=== PATIENT | female | born 1935 | race Caucasian/White ===

== ENCOUNTER 2020-02-11 13:49 | Outpatient (REF) | payer MEDICARE, SELFPAY ==
[2020-02-11 15:15] LABS: MANUAL DIFF FLAG NO
[2020-02-11 15:44] LABS: Basophils Absolute Auto 0.1 X10*3/uL (0.0-0.2); Basophils Percent Auto 1.5 % (0-2); Eosinophils Absolute Auto 0.6 X10*3/uL (0.0-0.4); Hematocrit 39.1 % (37-47); Imm Gran Abs Auto 0.02 X10*3/uL (0.00-0.03); Imm Gran Pct Auto 0.2 % (0.0-0.4); Lymphocytes Absolute Auto 2.1 X10*3/uL (1.2-4.9); Lymphocytes Percent Auto 23.7 % (20-40); Mean Corpuscular HGB Conc 33.2 g/dl (31.0-35.0); Mean Corpuscular Hemoglobin 30.5 pg (27.0-33.0); Mean Corpuscular Volume 91.8 fL (80-98); Mean Platelet Volume 10.8 fL (9.4-12.3); Monocytes Absolute Auto 0.6 X10*3/uL (0.1-1.2); Monocytes Percent Auto 6.8 % (2-11); Neutrophils Absolute Auto 5.4 X10*3/uL (2.0-8.3); Neutrophils Percent Auto 60.8 % (45-73); Platelet Count 291 X10*3/uL (160-400); Red Blood Count 4.26 X10*6/uL (4.20-5.50); Red Cell Distribution Width 12.1 % (11.0-16.0); White Blood Count 8.8 X10*3/uL (4.8-10.8)
[2020-02-11 16:06] LABS: Alanine Aminotransferase 23 U/L (0-31); Albumin Level 4.4 g/dL (3.5-5.0); Alkaline Phosphatase 79 U/L (39-117); Anion Gap 12 (12-20); Aspartate Amino Transferase 23 U/L (5-31); Bilirubin Total 0.3 mg/dL (0.0-1.0); Blood Urea Nitrogen 23 mg/dL (9-16); C Reactive Protein 0.12 mg/dL (< or = 0.50); Calcium 9.4 mg/dL (8.4-10.2); Carbon Dioxide 27 mmol/L (22-29); Chloride 101 mmol/L (96-108); Estimated Glomerular Filt Rate 42; Glucose Random 249 mg/dL (60-115); Potassium 4.7 mmol/l (3.3-5.1); Rheumatoid Factor < 15.0 IU/mL (<15.0); Sodium 135 mmol/L (135-145); Total Protein 7.6 g/dL (6.5-8.0)
[2020-02-11 16:38] LABS: Erythrocyte Sedimentation Rate 51 MM/HR (0-20)
[2020-02-12 14:07] LABS: PTT (LAC) Screen 25 sec (< OR = 40)
[2020-02-13 13:57] LABS: Antibody to SS-A Antigen <1.0 NEG AI (<1.0 NEG); Antibody to SS-B Antigen <1.0 NEG AI (<1.0 NEG)
[2020-02-16 10:57] LABS: Vitamin D 25-OH, D2 <4 ng/mL; Vitamin D 25-OH, D3 41 ng/mL; Vitamin D 25-OH, Total 41 ng/mL (30-100)
[2020-02-16 12:51] LABS: Cyclic Citrullinated Peptide <16 UNITS
== END 2020-02-11 13:50 | disposition home or self-care (01) ==
LOC: HO.LAB 13:49
PROVIDERS: PCP Family Medicine; Visit Provider Student in an Organized Health Care Education/Training Program
DX: M25.50 Pain in unspecified joint (principal)
CPT/HCPCS: 36415; 80053; 82306; 84443; 85025; 85597; 85613; 85652; 85730; 86140; 86200; 86235; 86431; 99204

== ENCOUNTER 2020-03-01 14:12 | Outpatient (REF) | payer MEDICARE, SELFPAY ==
--- NOTE | 2020-03-01 14:19 | XR_ITS ---
EXAMINATION: XR BILATERAL KNEE AND CERVICAL SPINE CLINICAL INFORMATION: Pain. COMPARISON: None. TECHNIQUE: 3 views of each knee. 3 views cervical spine. FINDINGS: Left Knee: There is zogi-ai-eslcalic loss of patellofemoral and medial compartment joint space with periarticular spurring. No joint effusion seen. There is small enthesophytes along the anterior superior patella. No loose bodies. There is mild calcification of the lateral meniscus. Right Knee: There is a loss of medial and patellar femoral compartment joint space with periarticular spurring. No abnormal joint effusion seen. There is mild calcification of the lateral menisci. No fracture seen. Cervical Spine: There is maintained cervical lordosis. There is loss of C6-C7 disc height with moderate ventral spondylosis. There is bilateral facet joint arthropathy at C4-C5, C5-C6 disc levels. No visible acute fracture or dislocation seen. The prevertebral soft tissues are normal. XR/XR cervical spine 2V IMPRESSION: Lateral meniscal calcifications with loss of disc joint space in medial and lateral compartments of both knees consistent degenerative arthritis. No visible acute fracture or dislocation seen. Mild degenerative disc changes C6-C7 disc level with ventral spondylosis.
--- NOTE | 2020-03-01 14:19 | XR_ITS ---
EXAMINATION: XR BILATERAL KNEE AND CERVICAL SPINE CLINICAL INFORMATION: Pain. COMPARISON: None. TECHNIQUE: 3 views of each knee. 3 views cervical spine. FINDINGS: Left Knee: There is roxu-rk-uhfevajp loss of patellofemoral and medial compartment joint space with periarticular spurring. No joint effusion seen. There is small enthesophytes along the anterior superior patella. No loose bodies. There is mild calcification of the lateral meniscus. Right Knee: There is a loss of medial and patellar femoral compartment joint space with periarticular spurring. No abnormal joint effusion seen. There is mild calcification of the lateral menisci. No fracture seen. Cervical Spine: There is maintained cervical lordosis. There is loss of C6-C7 disc height with moderate ventral spondylosis. There is bilateral facet joint arthropathy at C4-C5, C5-C6 disc levels. No visible acute fracture or dislocation seen. The prevertebral soft tissues are normal. XR/XR knee RT 3V IMPRESSION: Lateral meniscal calcifications with loss of disc joint space in medial and lateral compartments of both knees consistent degenerative arthritis. No visible acute fracture or dislocation seen. Mild degenerative disc changes C6-C7 disc level with ventral spondylosis.
--- NOTE | 2020-03-01 14:19 | XR_ITS ---
EXAMINATION: XR BILATERAL KNEE AND CERVICAL SPINE CLINICAL INFORMATION: Pain. COMPARISON: None. TECHNIQUE: 3 views of each knee. 3 views cervical spine. FINDINGS: Left Knee: There is xbnj-yp-hyxpcxqy loss of patellofemoral and medial compartment joint space with periarticular spurring. No joint effusion seen. There is small enthesophytes along the anterior superior patella. No loose bodies. There is mild calcification of the lateral meniscus. Right Knee: There is a loss of medial and patellar femoral compartment joint space with periarticular spurring. No abnormal joint effusion seen. There is mild calcification of the lateral menisci. No fracture seen. Cervical Spine: There is maintained cervical lordosis. There is loss of C6-C7 disc height with moderate ventral spondylosis. There is bilateral facet joint arthropathy at C4-C5, C5-C6 disc levels. No visible acute fracture or dislocation seen. The prevertebral soft tissues are normal. XR/XR knee LT 3V IMPRESSION: Lateral meniscal calcifications with loss of disc joint space in medial and lateral compartments of both knees consistent degenerative arthritis. No visible acute fracture or dislocation seen. Mild degenerative disc changes C6-C7 disc level with ventral spondylosis.
== END 2020-03-01 14:13 | disposition home or self-care (01) ==
LOC: HO.XRAY 14:12
PROVIDERS: PCP Family Medicine; Visit Provider Student in an Organized Health Care Education/Training Program
DX: M25.50 Pain in unspecified joint (principal)
CPT/HCPCS: 72040; 73562

== ENCOUNTER 2020-03-02 11:36 | Outpatient (REF) | payer MEDICARE, SELFPAY ==
[2020-03-03 15:11] LABS: Prot Elec - Albumin 3.9 g/dL (3.8-4.8); Prot Elec - Alpha1 0.3 g/dL (0.2-0.3); Prot Elec - Alpha2 0.9 g/dL (0.5-0.9); Prot Elec - Beta 1 0.5 g/dL (0.4-0.6); Prot Elec - Beta 2 0.5 g/dL (0.2-0.5); Prot Elec - Gamma 1.2 g/dL (0.8-1.7); Prot Elec - Total Protein 7.3 g/dL (6.1-8.1)
[2020-03-07 13:02] LABS: IgA 335 mg/dL (70-320); IgG 1276 mg/dL (600-1540); IgM 73 mg/dL (50-300)
== END 2020-03-02 11:37 | disposition home or self-care (01) ==
LOC: HO.LAB 11:36
PROVIDERS: PCP Family Medicine; Referring Provider Family Medicine; Visit Provider Student in an Organized Health Care Education/Training Program
DX: M17.12 Unilateral primary osteoarthritis, left knee (principal); R70.0 Elevated erythrocyte sedimentation rate; M25.50 Pain in unspecified joint; Z79.82 Long term (current) use of aspirin; Z79.4 Long term (current) use of insulin; Z79.899 Other long term (current) drug therapy; Z79.891 Long term (current) use of opiate analgesic
CPT/HCPCS: 20610; 36415; 82784; 84155; 84165; 86334; 99212

== ENCOUNTER → 2020-04-12 13:42 | Outpatient (BNVA) | payer MEDICARE, SELFPAY | PROVIDERS: PCP Family Medicine; Referring Provider Family Medicine; Visit Provider Nurse Practitioner | DX: Z13.89 Encounter for screening for other disorder (principal) | CPT/HCPCS: Q3014 ==

== ENCOUNTER → 2020-06-07 13:46 | Outpatient (BNVA) | payer MEDICARE, SELFPAY | PROVIDERS: PCP Family Medicine; Visit Provider Nurse Practitioner | CPT/HCPCS: Q3014 ==

== ENCOUNTER 2020-06-24 12:50 | Outpatient (REF) | payer MEDICARE, SELFPAY ==
--- NOTE | ~2020-06-24 | MM_ITS ---
EXAMINATION: MM SCREENING DIGITAL BREAST TOMOSYNTHESIS, BILATERAL CLINICAL INFORMATION: Screening. Asymptomatic. The lifetime risk of breast cancer based on the Tyrer-Cuzick Model is 1%. COMPARISON: Mammography: 06/18/2019, 05/06/2018, 04/25/2017 TECHNIQUE: Digital breast tomosynthesis is performed in both the craniocaudal and mediolateral oblique views along with computer-aided detection (CAD). Synthesized 2D images are generated from the tomosynthesis. Additional right MLO view is provided. FINDINGS: There are scattered areas of fibroglandular density (ACR BI-RADS breast composition Category b). There are no significant masses, abnormal calcifications, or other abnormalities. The axilla and skin contours are unremarkable. MM/MM tomosynthesis screening BI IMPRESSION: No mammographic evidence of malignancy. ASSESSMENT: BI-RADS 1: Negative RECOMMENDATION: Routine annual mammography screening. This patient's information was entered into a reminder system with a target due date for their next mammogram.
== END 2020-06-24 12:51 | disposition home or self-care (01) ==
LOC: HO.MAMMO 12:50
PROVIDERS: Visit Provider Family Medicine
DX: Z12.31 Encounter for screening mammogram for malignant neoplasm of breast (principal)
CPT/HCPCS: 77063; 77067

== ENCOUNTER → 2020-07-12 15:32 | Outpatient (BNVA) | payer MEDICARE, SELFPAY | PROVIDERS: Visit Provider Student in an Organized Health Care Education/Training Program | DX: M17.11 Unilateral primary osteoarthritis, right knee (principal) | CPT/HCPCS: 20610; 99212 ==

== ENCOUNTER → 2020-07-19 12:57 | Outpatient (BNVA) | payer MEDICARE, SELFPAY | PROVIDERS: Visit Provider Nurse Practitioner | DX: K31.84 Gastroparesis (principal) | CPT/HCPCS: Q3014 ==

== ENCOUNTER 2020-08-29 08:25 | Emergency (ER) | payer MEDICARE, SELFPAY ==
--- NOTE | 2020-08-29 | ECG_ITS ---
Test Reason : FALL Blood Pressure : / mmHG Vent. Rate : 086 BPM Atrial Rate : 086 BPM P-R Int : 130 ms QRS Dur : 124 ms QT Int : 446 ms P-R-T Axes : 062 -39 077 degrees QTc Int : 533 ms Normal sinus rhythm Left axis deviation Left bundle branch block Abnormal ECG When compared with ECG of 30-DEC-2019 16:15, No significant change was found Referred By: Generic ED Physician Electronically Signed By:WILBERT CAMPBELL
--- NOTE | ~2020-08-29 | CT_ITS ---
EXAMINATION: CT HIP WITHOUT CONTRAST, RIGHT CLINICAL INFORMATION: Fall with right hip pain. COMPARISON: 08/29/2020 TECHNIQUE: Multidetector volumetric imaging was obtained through the right hip without contrast. Multiplanar reformatted images in coronal and sagittal orientations were submitted. This CT examination was performed using dose optimization techniques as appropriate, variously including the following: *Automated exposure control *Adjustment of mA and/or kV according to patient size (this includes techniques or standardized protocols for targeted exams where dose is matched to indication/reason for exam; i.e. extremities or head) *Use of iterative reconstruction technique DLP: 187 mGy-cm. FINDINGS: Small marginal osteophytes are present at the right acetabulum and femoral head. There is chondrocalcinosis at the acetabular labrum. Mild nonuniform joint space narrowing is present in the right hip. Cvqu-vk-oxubypoq osteoarthritis is also noted in the imaged portion of the articular joint with subchondral sclerosis, subchondral cystic change, joint space narrowing, and articular cortical irregularity as well as marginal osteophytes. Moderate osteoarthritis of the pubic symphysis is associated with chondrocalcinosis, marginal osteophytes, and subchondral sclerosis. No fractures are identified. Bone mineralization is normal. No stress reactions or aggressive osseous lesions are identified. Enthesopathic spurring is present at the gluteus minimus insertions on the greater trochanter. There is xutf-xd-ywqhhjux atrophy and fatty replacement of the gluteus minimus, likely with a chronic partial tear. Tendinosis is suspected of the gluteus medius insertion. Trochanteric bursitis may be present in this region. No large fluid collections. Calcific atherosclerosis is present in the iliac and femoral arteries. CT/CT hip RT wo con IMPRESSION: 1. No acute fracture or malalignment. 2. 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 There is associated chondrocalcinosis. 3. Mild to moderate atrophy and fatty replacement of the right gluteus minimus muscle with a probable chronic partial tear of the tendon. Probable mild trochanteric bursitis and underlying gluteus medius tendinosis.
--- NOTE | ~2020-08-29 | CT_ITS ---
EXAMINATION: CT HEAD, CT CERVICAL SPINE WITHOUT CONTRAST. RIGHT HIP AND CHEST X-RAY. CLINICAL INFORMATION: Fall with chest pain. COMPARISON: None TECHNIQUE: 5 mm thin axial and reformatted 2 mm thin sagittal and coronal images of brain were obtained. Subsequently axial 3 mm thin and reformatted 2 mm thin sagittal and coronal images of cervical spine were obtained. DLP [id number]. Chest one view. AP pelvis and right hip 3 views. FINDINGS: AP pelvis and right hip: There is normal symmetry of both hip joints and SI joints. No visible fracture or dislocation seen involving the right hip joint on the pelvic bones. There is amorphous calcification left pelvis likely calcified uterine fibroid. Chest x-ray: The lungs are well-expanded and clear. Heart size and pulmonary vascularity is normal. There is a 2 mm punctate nodule right lower lobe. No gross bony abnormality seen. Brain: There is no acute intra-axial, extra-axial bleed, masses or midline shift. There is no acute infarct in evolution. The baker to white matter differentiation is maintained normal. The lateral ventricles are enlarged but symmetrical. There is diffuse periventricular hypodensity in both cerebral hemispheres from chronic small vessel changes. Bone windows reveal no calvarial abnormality. There is no scalp soft tissue abnormality. There is mild mucoperiosteal thickening right maxillary and left sphenoid sinus. Rest of the paranasal sinuses and mastoid air cells are well-aerated. Cervical spine: There is normal cervical lordosis. The vertebral heights, alignment and disc heights are normal. The craniovertebral junction and C1-C2 alignment is normal. There is mild bilateral C3-C4 and C4-C5 facet joint arthropathy The prevertebral and paravertebral soft tissues are normal. There is no visible acute fracture, dislocation or subluxation. Visualized bilateral parotid glands are symmetrical and normal. The airway is widely patent. Minimal atelectatic changes seen in the right lung apex. CT/CT cervical spine wo con IMPRESSION: No acute cardiopulmonary process. No acute fracture or dislocation right hip. The AP pelvis is unremarkable. No acute intracranial process seen. Age-related cerebral volume loss. Chronic small vessel or microangiopathy in both cerebral hemispheres. No acute fracture or dislocation cervical spine..
[2020-08-29 08:36] VITALS: BP 158/64; BP 160/69; PULSE 100; PULSE 92; RESP 16; TEMP 36.9; O2SAT 95; O2SAT 97; BMI 24.3
--- NOTE | 2020-08-29 09:20 | ED.GENADULT ---
HPI - General Adult General Chief complaint: Fall Stated complaint: fall/ ON floor all night Time Seen by Provider: 08/29/20 09:18 Source: patient, family (Daughter), EMS and official court interpreter Mode of arrival: EMS Limitations: no limitations History of Present Illness HPI narrative: 84-year-old female found on the floor next to her bed by her daughter thought that she fell of the bed, patient now is telling her daughter that she could not get on the bed so she slept on the floor, patient lives with chronic pain of the whole body due to arthritis today is complaining of chest pain and right hip pain that also has been for a while. Patient has no specific complaint. Related Data Home Medications Medication Instructions Recorded Confirmed acetaminophen 650 mg 650 mg PO Q8H 02/11/20 tablet,extended release albuterol sulfate 2.5 mg INHALATION QID 02/11/20 albuterol sulfate 90 mcg/actuation 2 puff INHALATION Q4-6H PRN 02/11/20 aerosol inhaler aspirin 81 mg tablet,delayed 81 mg PO DAILY 02/11/20 release atorvastatin 40 mg tablet 40 mg PO DAILY 02/11/20 calcium carbonate 500 mg (1,250 1 tab PO BID 02/11/20 mg)-vitamin D3 200 unit tablet fluticasone propionate 220 2 puff INHALATION BID 02/11/20 mcg/actuation HFA aerosol inhaler fluticasone propionate 50 1 spray INTRANASAL DAILY 02/11/20 mcg/actuation nasal spray,suspension irbesartan 300 mg tablet 300 mg PO DAILY 02/11/20 loratadine 10 mg tablet 10 mg PO DAILY 02/11/20 nitroglycerin 0.4 mg sublingual 0.4 mg SUBLINGUAL Q5M PRN 02/11/20 tablet omega-3 fatty acids 1,000 mg 1,000 mg PO BID 02/11/20 capsule tramadol 50 mg tablet 50 mg PO BID PRN 02/11/20 zolpidem 10 mg tablet 10 mg PO BEDTIME tab 02/11/20 gabapentin 600 mg tablet 300 mg PO TID tab 03/02/20 03/02/20 calcium polycarbophil 625 mg tablet 1,250 mg PO BID 03/21/20 03/21/20 simethicone 125 mg capsule 125 mg PO TID-QID PRN 03/21/20 03/21/20 insulin aspar prt-insulin aspart 10 unit SUBCUT BID 06/07/20 06/07/20 100 unit/mL (70-30) subcutaneous soln Previous Rx's Medication Instructions Recorded sennosides 8.6 mg capsule 17.2 mg PO BEDTIME 30 Days #60 cap 03/22/20 utjsse-koyxcrvi-cmturnf 1 cap PO QID #140 cap 04/14/20 3,000-9,500-15,000 unit capsule,delayed releas lubiprostone 24 mcg capsule 24 mcg PO BID #180 cap 05/23/20 metoclopramide HCl 10 mg tablet 10 mg PO .TIDAC 30 Days #90 tab 06/07/20 Saccharomyces boulardii 250 mg 250 mg PO BID 30 Days #60 cap 07/25/20 capsule docusate sodium 100 mg capsule 100 mg PO DAILY #30 cap 08/24/20 Allergies Allergy/AdvReac Type Severity Reaction Status Date / Time almond Allergy Intermediate HIVES Verified 07/19/20 12:58 moxifloxacin [From Avelox] Allergy Mild Rash Verified 07/19/20 12:58 peanut [Peanut] Allergy Mild Rash Verified 07/19/20 12:58 Review of Systems Review of Systems: All other systems are reviewed and are negative Constitutional: Reports as per HPI and Reports no additional constitutional complaints Eyes: Reports as per HPI and Reports no additional eye complaints Reports system reviewed and no additional complaints, except as documented Cardiovascular: Reports as per HPI and Reports no additional cardiovascular complaints Respiratory: Reports as per HPI and Reports no additional respiratory complaints Gastrointestinal: Reports as per HPI and Reports no additional gastrointestinal complaints Genitourinary: Reports no additional female genitourinary complaints Musculoskeletal: Reports no additional musculoskeletal complaints Skin/Breast: Reports system reviewed and no additional complaints, except as docu Psychiatric: Reports no additional psychiatric complaints Endocrine: Reports no additional endocrine complaints Hematologic/Lymphatic: Reports no additional hematologic/lymphatic complaints Allergic/Immunologic: Reports no additional allergic/immunologic complaints Reports system reviewed and no additional complaints, except as documented and Reports Abnormal speech present COUNT INCLUDES THE [facility] Past Medical History Medical History Asthma Congestive heart failure Coronary artery disease Diabetes mellitus Diverticulitis Hypertension Irritable bowel syndrome Left bundle branch block Osteoporosis Surgical History History of cholecystectomy History of esophagogastroduodenoscopy (EGD) Hx of colonoscopy S/P appendectomy S/P coronary artery stent placement S/P hernia repair Family History Family History Father CVD (cardiovascular disease) Mother Diabetes CVD (cardiovascular disease) Social History Social History Household Members: Children Housing: House Alcohol intake: current Alcohol intake frequency: does not drink Smoking Status: Unknown if ever smoked Use of substances other than those prescribed or required for medical reasons: No Advance Directives: No Advance Directives Information Provided: No Physical Exam Vital Signs: Vital Signs: Last Vital Signs Temp 98.5 F 08/29/20 08:36 Pulse 88 08/29/20 14:19 Resp 16 08/29/20 14:19 BP 155/77 H 08/29/20 14:19 Pulse Ox 97 08/29/20 14:19 Body Mass Index 24.3 Vital signs have been reviewed as appeared to be correct. Blood pressure elevated. Heart rate normal. Respiration rate normal. Temperature normal. Oxygen saturation normal. Appearance: Alert. Oriented X3 (not to time). No acute distress. Head: Normal external exam. Normocephalic. Atraumatic. No Rodas signs noted. No raccoon eyes noted Eyes: PERRLA. EOMI. Conjunctiva and sclera normal. Eyelids normal. ENT: TM's Normal. Pharynx normal. Uvula midline. Moist mucous membranes. No trismus noted. No drooling noted. No muffled voice noted. Neck: Normal inspection. Neck supple. FROM. No adenopathy. Thyroid Normal. No meningeal signs. No neck mass noted. CVS: Normal heart rate and rhythm. Heart sound normal. No murmurs noted. Pulses normal throughout. Respiratory: No respiratory distress. Painless inspiration. Breath sounds normal. No wheezes/rales/rhonchi noted. Chest nontender. No accessory muscle usage noted or decreased air movement noted. Abdomen: Soft and nontender. Bowel sounds normal in all 4 quadrants. No distention noted. No organomegaly noted. No visible injury noted. Back: No CVA tenderness. Full range of motion noted. Skin: Skin warm and dry. Normal skin color. Normal skin turgor. No rashes/lesions/lacerations noted. Extremities: No lower extremity edema. Extremities exhibit normal range of motion. Right hip tenderness but no deformity or shortening rotation of the lower extremities.. Neuro: Oriented X 3. No motor deficit. No sensory deficit. Reflexes normal. Course Course Course Narrative: Assessment and plan. This is an 84-year-old female came in after patient slipped on the floor last night because she could not get on the bed on her own, patient had EKG was unchanged from baseline, troponin was elevated but no delta change, unremarkable radiographic studies for head/C-spine/right hip. Normal renal function test with elevated CPK indicating rhabdomyolysis. Patient adamantly refusing to stay in the hospital but agreed to drink plenty of fluids at home, will give a L of normal saline before discharge then Will discharge the patient with daughter. Patient suffer chronic pain due to diffuse arthritis. 5-9 wbc's in the urine but patient declined any symptoms for UTI. Medical Decision Making Lab Data Lab results reviewed: Yes I reviewed the patient's lab results. Result diagrams: 08/29/20 10:22 08/29/20 10:22 Labs: Lab Results 08/29/20 08/29/20 08/29/20 Range/Units 10:22 10:22 10:22 WBC 12.6 H (4.8-10.8) X10*3/uL RBC 4.90 (4.20-5.50) X10*6/uL Hgb 14.8 (12.0-16.0) g/dl Hct 43.6 (37-47) % MCV 89.0 (80-98) fL MCH 30.2 (27.0-33.0) pg MCHC 33.9 (31.0-35.0) g/dl RDW 12.5 (11.0-16.0) % Plt Count 227 (160-400) X10*3/uL MPV 10.3 (9.4-12.3) fL Immature Gran % (Auto) 0.4 (0.0-0.4) % Neut % (Auto) 82.5 H (45-73) % Lymph % (Auto) 10.1 L (20-40) % Corson % (Auto) 5.8 (2-11) % Eos % (Auto) 0.5 (0-4) % Baso % (Auto) 0.7 (0-2) % Lymph # (Auto) 1.3 (1.2-4.9) X10*3/uL Corson # (Auto) 0.7 (0.1-1.2) X10*3/uL Eos # (Auto) 0.1 (0.0-0.4) X10*3/uL Baso # (Auto) 0.1 (0.0-0.2) X10*3/uL Abs Immat Gran (auto) 0.05 H (0.00-0.03) X10*3/uL Absolute Neuts (auto) 10.4 H (2.0-8.3) X10*3/uL Absolute Nucleated RBC 0.000 (0.0-0.012) X10*3/uL Nucleated RBC % (auto) 0.0 (0.0-0.2) /100WBC Sodium 137 (135-145) mmol/L Potassium 3.9 (3.3-5.1) mmol/L Chloride 100 (96-108) mmol/L Carbon Dioxide 27 (22-29) mmol/L Anion Gap 14 (12-20) BUN 16 (9-16) mg/dL Creatinine 0.98 (0.5-1.4) mg/dL Estim Creat Clear Calc 32.2 Estimated GFR 54 Random Glucose 193 H (60-115) mg/dL Calcium 10.1 D (8.4-10.2) mg/dL Total Creatine Kinase 1515 H (26-140) U/L Troponin I High Sens 166.6 H (<3.5-17.0) ng/L Lipase 38 (8-78) U/L Urine Color Urine Appearance Urine pH (5.0-8.0) Ur Specific Campbell (1.005-1.025) Urine Protein (NEG-TRACE) MG/DL Urine Glucose (UA) (NEG) MG/DL Urine Ketones (NEG) MG/DL Urine Blood (NEG) Urine Nitrite (NEG) Ur Leukocyte Esterase (NEG) Urine RBC (0) /HPF Urine WBC (0-4) /HPF Ur Squamous Epith Cells /LPF Urine Bacteria /LPF 08/29/20 08/29/20 Range/Units 11:37 14:00 WBC (4.8-10.8) X10*3/uL RBC (4.20-5.50) X10*6/uL Hgb (12.0-16.0) g/dl Hct (37-47) % MCV (80-98) fL MCH (27.0-33.0) pg MCHC (31.0-35.0) g/dl RDW (11.0-16.0) % Plt Count (160-400) X10*3/uL MPV (9.4-12.3) fL Immature Gran % (Auto) (0.0-0.4) % Neut % (Auto) (45-73) % Lymph % (Auto) (20-40) % Corson % (Auto) (2-11) % Eos % (Auto) (0-4) % Baso % (Auto) (0-2) % Lymph # (Auto) (1.2-4.9) X10*3/uL Corson # (Auto) (0.1-1.2) X10*3/uL Eos # (Auto) (0.0-0.4) X10*3/uL Baso # (Auto) (0.0-0.2) X10*3/uL Abs Immat Gran (auto) (0.00-0.03) X10*3/uL Absolute Neuts (auto) (2.0-8.3) X10*3/uL Absolute Nucleated RBC (0.0-0.012) X10*3/uL Nucleated RBC % (auto) (0.0-0.2) /100WBC Sodium (135-145) mmol/L Potassium (3.3-5.1) mmol/L Chloride (96-108) mmol/L Carbon Dioxide (22-29) mmol/L Anion Gap (12-20) BUN (9-16) mg/dL Creatinine (0.5-1.4) mg/dL Estim Creat Clear Calc Estimated GFR Random Glucose (60-115) mg/dL Calcium (8.4-10.2) mg/dL Total Creatine Kinase (26-140) U/L Troponin I High Sens 129.5 H (<3.5-17.0) ng/L Lipase (8-78) U/L Urine Color YELLOW Urine Appearance HAZY Urine pH 6.0 (5.0-8.0) Ur Specific Campbell 1.010 (1.005-1.025) Urine Protein NEG (NEG-TRACE) MG/DL Urine Glucose (UA) NEG (NEG) MG/DL Urine Ketones NEG (NEG) MG/DL Urine Blood 2+ H (NEG) Urine Nitrite NEG (NEG) Ur Leukocyte Esterase NEG (NEG) Urine RBC 1-4 (0) /HPF Urine WBC 5-9 H (0-4) /HPF Ur Squamous Epith Cells TRACE /LPF Urine Bacteria 4+ /LPF Imaging Data Right hip CT: Radiologist's impression: No acute fracture or malalignment. Head CT: Radiologist's impression: No acute intracranial process seen. Age-related cerebral volume loss. Chronic small vessel or microangiopathy in both cerebral hemispheres. Chest x-ray: Radiologist's impression: No acute cardiopulmonary process Cervical spine CT: Radiologist's impression: No acute fracture dislocation of the cervical spine. ECG Data Interpretation: Normal sinus rhythm at 86 beats per minutes, left axis deviation, left bundle branch block. Discharge Plan Discharge Clinical Impression: Elevated troponin, Arthritis Rhabdomyolysis Qualifiers: Rhabdomyolysis type: traumatic Encounter type: initial encounter Qualified Code(s): T79.6XXA - Traumatic ischemia of muscle, initial encounter Patient Disposition: Home, Self-Care Instructions: Arthritis (ED) Additional Instructions: Drink plenty of water, which for urine output if any decrease in urine output or unable to urinate seek immediate medical attention. Prescriptions: No Action mykpxe-amjnltry-wvclexp [Creon] 3,000-9,500- 15,000 unit capsule,delayed release(DR/EC) 1 cap PO QID Qty: 140 RF: 3 lubiprostone [Amitiza] 24 mcg capsule 24 mcg PO BID Qty: 180 RF: 2 Saccharomyces boulardii [Probiotic (S.boulardii)] 250 mg capsule 250 mg PO BID 30 Days Qty: 60 RF: 3 docusate sodium 100 mg capsule 100 mg PO DAILY Qty: 30 RF: 0 insulin asp prt-insulin aspart [Novolog Mix 70-30 U-100 Insuln] 100 unit/mL (70-30) solution 10 unit subcut BID RF: 0 metoclopramide HCl [Reglan] 10 mg tablet 10 mg PO .TIDAC 30 Days Qty: 90 RF: 3 calcium polycarbophil [Fiber Therapy (ca polycarboph)] 625 mg tablet 1,250 mg PO BID RF: 0 simethicone [Gas Relief (simethicone)] 125 mg capsule 125 mg PO TID-QID PRNRF: 0 senna 8.6 mg capsule 17.2 mg PO BEDTIME 30 Days Qty: 60 RF: 3 tramadol 50 mg tablet 50 mg PO BID PRNRF: 0 loratadine [Claritin] 10 mg tablet 10 mg PO DAILY RF: 0 irbesartan 300 mg tablet 300 mg PO DAILY RF: 0 fluticasone propionate [Flonase Allergy Relief] 50 mcg/actuation spray,suspension 1 spray intranasal DAILY RF: 0 albuterol sulfate 90 mcg/actuation HFA aerosol inhaler 2 puff inhalation Q4-6H PRNRF: 0 albuterol sulfate 2.5 mg /3 mL (0.083 %) solution for nebulization 2.5 mg inhalation QID RF: 0 acetaminophen [Mapap Arthritis Pain] 650 mg tablet extended release 650 mg PO Q8H RF: 0 Flovent HFA 220 mcg/actuation HFA aerosol inhaler 2 puff inhalation BID RF: 0 omega-3 fatty acids [Fish Oil Concentrate] 1,000 mg capsule 1,000 mg PO BID RF: 0 calcium carbonate-vitamin D3 [Calcium 500 + D] 500 mg(1,250mg) -200 unit tablet 1 tab PO BID RF: 0 aspirin [Adult Low Dose Aspirin] 81 mg tablet,delayed release (DR/EC) 81 mg PO DAILY RF: 0 nitroglycerin [Nitrostat] 0.4 mg tablet, sublingual 0.4 mg sublingual Q5M PRNRF: 0 atorvastatin 40 mg tablet 40 mg PO DAILY RF: 0 zolpidem [Ambien] 10 mg tablet 10 mg PO BEDTIME RF: 0 gabapentin 600 mg tablet 300 mg PO TID RF: 0 Referrals: Breann Mcgrath DO [Primary Care Provider] - 2 days
--- NOTE | 2020-08-29 09:29 | PC.NURSE ---
After MD evaluated, daughter reports pt stated that she did not fall but was unable to get into bed d/t right thip pain and sat on floor Pt is now out of room for xrays
[2020-08-29 10:00] VITALS: BP 168/68; PULSE 88; RESP 24; O2SAT 97
[2020-08-29 10:27] LABS: MANUAL DIFF FLAG NO
[2020-08-29 10:30] LABS: Basophils Absolute Auto 0.1 X10*3/uL (0.0-0.2); Basophils Percent Auto 0.7 % (0-2); Eosinophils Absolute Auto 0.1 X10*3/uL (0.0-0.4); Eosinophils Percent Auto 0.5 % (0-4); Hematocrit 43.6 % (37-47); Hemoglobin 14.8 g/dl (12.0-16.0); Imm Gran Abs Auto 0.05 X10*3/uL (0.00-0.03); Imm Gran Pct Auto 0.4 % (0.0-0.4); Lymphocytes Absolute Auto 1.3 X10*3/uL (1.2-4.9); Lymphocytes Percent Auto 10.1 % (20-40); Mean Corpuscular HGB Conc 33.9 g/dl (31.0-35.0); Mean Corpuscular Hemoglobin 30.2 pg (27.0-33.0); Mean Platelet Volume 10.3 fL (9.4-12.3); Monocytes Absolute Auto 0.7 X10*3/uL (0.1-1.2); Monocytes Percent Auto 5.8 % (2-11); Neutrophils Absolute Auto 10.4 X10*3/uL (2.0-8.3); Neutrophils Percent Auto 82.5 % (45-73); Platelet Count 227 X10*3/uL (160-400); Red Cell Distribution Width 12.5 % (11.0-16.0); White Blood Count 12.6 X10*3/uL (4.8-10.8)
[2020-08-29 10:59] LABS: Anion Gap 14 (12-20); Blood Urea Nitrogen 16 mg/dL (9-16); Calcium 10.1 mg/dL (8.4-10.2); Carbon Dioxide 27 mmol/L (22-29); Chloride 100 mmol/L (96-108); Creatinine Clr Calc Pharmacy 32.2; Estimated Glomerular Filt Rate 54; Glucose Random 193 mg/dL (60-115); Lipase 38 U/L (8-78); Potassium 3.9 mmol/L (3.3-5.1); Sodium 137 mmol/L (135-145)
[2020-08-29 11:09] LABS: Troponin-I High Sensitivity 166.6 ng/L (<3.5-17.0)
[2020-08-29 11:46] LABS: Glucose Urine UA NEG (NEG); Leukocyte Esterase Urine NEG (NEG); Nitrite Urine NEG (NEG); Urine Blood 2+ (NEG); Urine Ketones NEG (NEG); Urine Protein NEG (NEG-TRACE)
[2020-08-29 11:55] LABS: Appearance Urine HAZY; Color Urine YELLOW
[2020-08-29] MEDS: Acetaminophen 325 MG TABLET 650 MG PO (12:23)
[2020-08-29 12:50] LABS: Bacteria Urine 4+ /LPF; Squamous Epithelial Cell Urine TRACE /LPF; UACC CULT YES
[2020-08-29 14:19] VITALS: BP 155/77; PULSE 88; RESP 16; O2SAT 97
[2020-08-29 14:42] LABS: Troponin-I High Sensitivity 129.5 ng/L (<3.5-17.0)
[2020-08-29 16:00] VITALS: BP 145/65; PULSE 83; RESP 19; O2SAT 96
[2020-08-29] MEDS: 0.9 % Sodium Chloride 1,000 ML 999 ML IVCONT (16:18)
== END 2020-08-29 17:55 | disposition home or self-care (01) ==
PROVIDERS: Emergency Provider Emergency Medicine; PCP Family Medicine
DX: M89.49 Other hypertrophic osteoarthropathy, multiple sites (principal); R77.8 Other specified abnormalities of plasma proteins; T79.6XXA Traumatic ischemia of muscle, initial encounter; W06.XXXA Fall from bed, initial encounter; Y93.84 Activity, sleeping; Y92.013 Bedroom of single-family (private) house as the place of occurrence of the external cause; Y99.9 Unspecified external cause status; E11.9 Type 2 diabetes mellitus without complications; I11.0 Hypertensive heart disease with heart failure; I50.9 Heart failure, unspecified; Z79.4 Long term (current) use of insulin; Z79.899 Other long term (current) drug therapy
CPT/HCPCS: 36415; 70450; 71045; 72125; 73502; 73700; 80048; 81001; 82550; 83690; 84484; 85025; 87086; 87088; 87186; 93005; 96360; 99285

== ENCOUNTER 2020-08-30 17:50 | Inpatient (IN) | payer MEDICARE, SELFPAY ==
--- NOTE | ~2020-08-30 | CT_ITS ---
EXAMINATION: CT HEAD WITHOUT CONTRAST CLINICAL INFORMATION: Possible wall, same as yesterday. COMPARISON: CT brain 08/29/2020 TECHNIQUE: Contiguous axial imaging was performed from the skull base to vertex without intravenous administration of contrast. This CT examination was performed using dose optimization techniques as appropriate, variously including the following: *Automated exposure control *Adjustment of mA and/or kV according to patient size (this includes techniques or standardized protocols for targeted exams where dose is matched to indication/reason for exam; i.e. extremities or head) *Use of iterative reconstruction technique DLP: 648 mGy-cm FINDINGS: There is no evidence of acute intracranial hemorrhage or territorial infarction. No abnormal mass effect or midline shift is seen. [place] to white matter differentiation is well preserved. No extra-axial fluid collections are identified. The ventricles are symmetrical in size but mildly prominent. There is diffuse periventricular hypodensity in both cerebral hemispheres without mass effect. There is dystrophic bibasilar ganglia calcification. The osseous structures and soft tissues are normal. There is a lobulated soft tissue density in the right maxillary sinus with central hyperdense calcifications likely long-standing retention cyst, less likely polyp. Rest of the paranasal sinuses are well-aerated and clear.. CT/CT head/brain wo con IMPRESSION: No acute intracranial process seen.
[2020-08-30 18:07] VITALS: BP 165/69; PULSE 78; RESP 16; TEMP 36.7; O2SAT 97; BMI 26.9
--- NOTE | 2020-08-30 19:28 | ECG_ITS ---
Test Reason : FALL Blood Pressure : / mmHG Vent. Rate : 070 BPM Atrial Rate : 070 BPM P-R Int : 124 ms QRS Dur : 118 ms QT Int : 476 ms P-R-T Axes : 059 -42 059 degrees QTc Int : 514 ms Normal sinus rhythm Possible Left atrial enlargement Left axis deviation Left bundle branch block Abnormal ECG When compared with ECG of 29-AUG-2020 08:53, No significant changes seen Referred By: Joy Grimes Electronically Signed By:WILBERT CAMPBELL
[2020-08-30 20:36] LABS: MANUAL DIFF FLAG NO
[2020-08-30 20:38] LABS: Basophils Absolute Auto 0.1 X10*3/uL (0.0-0.2); Eosinophils Absolute Auto 0.3 X10*3/uL (0.0-0.4); Eosinophils Percent Auto 2.4 % (0-4); Hematocrit 38.7 % (37-47); Hemoglobin 13.1 g/dl (12.0-16.0); Imm Gran Abs Auto 0.03 X10*3/uL (0.00-0.03); Imm Gran Pct Auto 0.3 % (0.0-0.4); Lymphocytes Absolute Auto 2.6 X10*3/uL (1.2-4.9); Lymphocytes Percent Auto 23.8 % (20-40); Mean Corpuscular HGB Conc 33.9 g/dl (31.0-35.0); Mean Corpuscular Hemoglobin 29.9 pg (27.0-33.0); Mean Corpuscular Volume 88.4 fL (80-98); Mean Platelet Volume 10.5 fL (9.4-12.3); Monocytes Absolute Auto 0.7 X10*3/uL (0.1-1.2); Monocytes Percent Auto 6.8 % (2-11); Neutrophils Absolute Auto 7.1 X10*3/uL (2.0-8.3); Neutrophils Percent Auto 65.7 % (45-73); Platelet Count 220 X10*3/uL (160-400); Red Blood Count 4.38 X10*6/uL (4.20-5.50); Red Cell Distribution Width 12.5 % (11.0-16.0); White Blood Count 10.8 X10*3/uL (4.8-10.8)
[2020-08-30 20:57] LABS: Anion Gap 14 (12-20); Blood Urea Nitrogen 16 mg/dL (9-16); Calcium 9.2 mg/dL (8.4-10.2); Carbon Dioxide 23 mmol/L (22-29); Chloride 105 mmol/L (96-108); Creatinine Clr Calc Pharmacy 29.1; Estimated Glomerular Filt Rate 53; Glucose Random 138 mg/dL (60-115); Potassium 3.4 mmol/L (3.3-5.1); Sodium 139 mmol/L (135-145)
[2020-08-30 21:02] LABS: B Type Natriuretic Peptide 69 pg/mL (<100)
[2020-08-30 22:00] VITALS: BP 165/78; PULSE 74; RESP 16; O2SAT 97
--- NOTE | 2020-08-30 22:15 | ED.GENADULT ---
HPI - General Adult General Chief complaint: General Medical Stated complaint: Kidney Failure Time Seen by Provider: 08/30/20 21:38 Source: patient and family Mode of arrival: EMS Limitations: no limitations History of Present Illness HPI narrative: Patient comes to emergency room complaining of worsening weakness. Patient was seen here yesterday, patient seems to have had a fall, was on the floor all night, yesterday she had a CT scan of the head neck which did not show any acute abnormalities, hip CT did not show any fractures. Yesterday patient's CPK was 1500. Patient was asked to stay in the hospital but patient refused. This morning, patient was found on the floor again, it is unclear how long she was on the floor. The patient states that this morning she was spraying on her knees, was unable to get up and stayed on the floor. Patient states that she did not hit her head. Patient states she has chronic pain all over her body at baseline. According to the daughter, the patient is able to give some history but not all of it is accurate. This is the patient's baseline. After the patient was found on the floor this morning, the patient's daughter called the primary care physician, she was advised to come to emergency room for further evaluation/treatment. Patient is not on blood thinners, denies headache, complaining of chronic pain ?all over ? her body Related Data Home Medications Medication Instructions Recorded Confirmed acetaminophen 650 mg 650 mg PO Q8H 02/11/20 tablet,extended release albuterol sulfate 2.5 mg INHALATION QID 02/11/20 albuterol sulfate 90 mcg/actuation 2 puff INHALATION Q4-6H PRN 02/11/20 aerosol inhaler aspirin 81 mg tablet,delayed 81 mg PO DAILY 02/11/20 release atorvastatin 40 mg tablet 40 mg PO DAILY 02/11/20 calcium carbonate 500 mg (1,250 1 tab PO BID 02/11/20 mg)-vitamin D3 200 unit tablet fluticasone propionate 220 2 puff INHALATION BID 02/11/20 mcg/actuation HFA aerosol inhaler fluticasone propionate 50 1 spray INTRANASAL DAILY 02/11/20 mcg/actuation nasal spray,suspension irbesartan 300 mg tablet 300 mg PO DAILY 02/11/20 loratadine 10 mg tablet 10 mg PO DAILY 02/11/20 nitroglycerin 0.4 mg sublingual 0.4 mg SUBLINGUAL Q5M PRN 02/11/20 tablet omega-3 fatty acids 1,000 mg 1,000 mg PO BID 02/11/20 capsule tramadol 50 mg tablet 50 mg PO BID PRN 02/11/20 zolpidem 10 mg tablet 10 mg PO BEDTIME tab 02/11/20 gabapentin 600 mg tablet 300 mg PO TID tab 03/02/20 03/02/20 calcium polycarbophil 625 mg tablet 1,250 mg PO BID 03/21/20 03/21/20 simethicone 125 mg capsule 125 mg PO TID-QID PRN 03/21/20 03/21/20 insulin aspar prt-insulin aspart 10 unit SUBCUT BID 06/07/20 06/07/20 100 unit/mL (70-30) subcutaneous soln Previous Rx's Medication Instructions Recorded sennosides 8.6 mg capsule 17.2 mg PO BEDTIME 30 Days #60 cap 03/22/20 vrkwug-sxlhcumh-hhamkmo 1 cap PO QID #140 cap 04/14/20 3,000-9,500-15,000 unit capsule,delayed releas lubiprostone 24 mcg capsule 24 mcg PO BID #180 cap 05/23/20 metoclopramide HCl 10 mg tablet 10 mg PO .TIDAC 30 Days #90 tab 06/07/20 Saccharomyces boulardii 250 mg 250 mg PO BID 30 Days #60 cap 07/25/20 capsule docusate sodium 100 mg capsule 100 mg PO DAILY #30 cap 08/24/20 Allergies Allergy/AdvReac Type Severity Reaction Status Date / Time almond Allergy Intermediate HIVES Verified 08/30/20 18:07 moxifloxacin [From Avelox] Allergy Mild Rash Verified 08/30/20 18:07 peanut [Peanut] Allergy Mild Rash Verified 08/30/20 18:07 Review of Systems Review of Systems: Constitutional : N no fever no chills, worsening weakness, decreased p.o. intake ENT/Mouth : No Hearing loss, No Ear Pain, No Nasal Congestion, No Sinus Pain, No Hoarseness, No sore throat, No Rhinorrhea, No Swallowing Difficulty Eyes: No Eye Pain, No Swelling, No Redness, No Foreign Body, No Discharge, No Vision Changes Cardiovascular : No Chest Pain, No SOB, No Dyspnea on Exertion, No Orthopnea, No Edema, No Palpitations Respiratory : No Cough, No Sputum, No Wheezing, No Smoke Exposure, No Dyspnea Gastrointestinal : No Nausea, No Vomiting, No Diarrhea, No Constipation, No abdominal Pain, No Hematochezia, No Melena Genitourinary : no irregular bleeding, No Dysuria, No Urinary Frequency, No Hematuria, No Urinary Incontinence, No Urgency, No Flank Pain, No Urinary Flow Changes, No Hesitancy Musculoskeletal : Complaining of diffuse joint pains and myalgias, patient answered ?yes? to every part of her body Skin : No Skin Lesions, No rash Neuro : No Numbness, No Paresthesias, No Loss of Consciousness, No Dizziness, No Headache Psych : No Anxiety/Panic, No Depression, No SI/HI/AH/VH, No Social Issues, Heme/Lymph: No Bruising, No Bleeding,No Lymphadenopathy Endocrine : No Polyuria, No Polydipsia, No Temperature Intolerance [facility] Past Medical History Medical History Asthma Congestive heart failure Coronary artery disease Diabetes mellitus Diverticulitis Hypertension Irritable bowel syndrome Left bundle branch block Osteoporosis Surgical History History of cholecystectomy History of esophagogastroduodenoscopy (EGD) Hx of colonoscopy S/P appendectomy S/P coronary artery stent placement S/P hernia repair Family History Family History Father CVD (cardiovascular disease) Mother Diabetes CVD (cardiovascular disease) Social History Social History Household Members: Children Housing: House Alcohol intake: current Alcohol intake frequency: does not drink Smoking Status: Unknown if ever smoked Advance Directives: Yes Advance Directives Information Provided: No Advance Directives on File: No Physical Exam Vital Signs: Vital Signs: Last Vital Signs Temp 98.1 F 08/30/20 18:07 Pulse 78 08/30/20 18:07 Resp 16 08/30/20 18:07 BP 165/69 H 08/30/20 18:07 Pulse Ox 97 08/30/20 18:07 Body Mass Index 26.9 Appearance: Alert. Oriented X3. No acute distress. Appears weak Eyes: Pupils equal, round and reactive to light. ENT: Pharynx normal. Neck: Normal inspection. Neck supple. No lymph nodes noted. No crepitus CVS: Normal heart rate and rhythm. Pulses normal. Normal S1 and S2 Respiratory: No respiratory distress. Breath sounds normal. No Wheezing. No rales Abdomen: Soft and nontender. No rigidity. Mild to moderate distention. Skin: Skin warm and dry. Extremities: No lower extremity edema. No Rash Neuro: No motor deficit. No sensory deficit. Moving all extermities. No slurred speech. Course Course Course Narrative: I discussed the labs and imaging with the patient her daughter, patient will be admitted for symptomatic UTI. Patient received 1 g of ceftriaxone. Patient has no fever, no white blood cell count abnormality, sepsis is not suspected. Patient also being admitted for mild rhabdomyolysis patient has significant CHF, patient will be gently hydrated Medical Decision Making Lab Data Result diagrams: 08/30/20 20:31 08/30/20 20:31 Labs: Lab Results 08/30/20 08/30/20 08/30/20 Range/Units 20:31 20:31 20:31 WBC 10.8 (4.8-10.8) X10*3/uL RBC 4.38 (4.20-5.50) X10*6/uL Hgb 13.1 (12.0-16.0) g/dl Hct 38.7 (37-47) % MCV 88.4 (80-98) fL MCH 29.9 (27.0-33.0) pg MCHC 33.9 (31.0-35.0) g/dl RDW 12.5 (11.0-16.0) % Plt Count 220 (160-400) X10*3/uL MPV 10.5 (9.4-12.3) fL Immature Gran % (Auto) 0.3 (0.0-0.4) % Neut % (Auto) 65.7 (45-73) % Lymph % (Auto) 23.8 (20-40) % [place] % (Auto) 6.8 (2-11) % Eos % (Auto) 2.4 (0-4) % Baso % (Auto) 1.0 (0-2) % Lymph # (Auto) 2.6 (1.2-4.9) X10*3/uL [place] # (Auto) 0.7 (0.1-1.2) X10*3/uL Eos # (Auto) 0.3 (0.0-0.4) X10*3/uL Baso # (Auto) 0.1 (0.0-0.2) X10*3/uL Abs Immat Gran (auto) 0.03 (0.00-0.03) X10*3/uL Absolute Neuts (auto) 7.1 (2.0-8.3) X10*3/uL Absolute Nucleated RBC 0.000 (0.0-0.012) X10*3/uL Nucleated RBC % (auto) 0.0 (0.0-0.2) /100WBC Hold Blue Top SEE NOTE Sodium 139 (135-145) mmol/L Potassium 3.4 (3.3-5.1) mmol/L Chloride 105 (96-108) mmol/L Carbon Dioxide 23 (22-29) mmol/L Anion Gap 14 (12-20) BUN 16 (9-16) mg/dL Creatinine 0.99 (0.5-1.4) mg/dL Estim Creat Clear Calc 29.1 Estimated GFR 53 Random Glucose 138 H (60-115) mg/dL Calcium 9.2 D (8.4-10.2) mg/dL Total Creatine Kinase (26-140) U/L Troponin I High Sens (<3.5-17.0) ng/L B-Natriuretic Peptide (<100) pg/mL Urine Color Urine Appearance Urine pH (5.0-8.0) Ur Specific [place] (1.005-1.025) Urine Protein (NEG-TRACE) MG/DL Urine Glucose (UA) (NEG) MG/DL Urine Ketones (NEG) MG/DL Urine Blood (NEG) Urine Nitrite (NEG) Ur Leukocyte Esterase (NEG) Urine RBC (0) /HPF Urine WBC (0-4) /HPF Ur Squamous Epith Cells /LPF Urine Bacteria /LPF 08/30/20 08/30/20 08/30/20 Range/Units 20:31 20:31 22:23 WBC (4.8-10.8) X10*3/uL RBC (4.20-5.50) X10*6/uL Hgb (12.0-16.0) g/dl Hct (37-47) % MCV (80-98) fL MCH (27.0-33.0) pg MCHC (31.0-35.0) g/dl RDW (11.0-16.0) % Plt Count (160-400) X10*3/uL MPV (9.4-12.3) fL Immature Gran % (Auto) (0.0-0.4) % Neut % (Auto) (45-73) % Lymph % (Auto) (20-40) % [place] % (Auto) (2-11) % Eos % (Auto) (0-4) % Baso % (Auto) (0-2) % Lymph # (Auto) (1.2-4.9) X10*3/uL [place] # (Auto) (0.1-1.2) X10*3/uL Eos # (Auto) (0.0-0.4) X10*3/uL Baso # (Auto) (0.0-0.2) X10*3/uL Abs Immat Gran (auto) (0.00-0.03) X10*3/uL Absolute Neuts (auto) (2.0-8.3) X10*3/uL Absolute Nucleated RBC (0.0-0.012) X10*3/uL Nucleated RBC % (auto) (0.0-0.2) /100WBC Hold Blue Top Sodium (135-145) mmol/L Potassium (3.3-5.1) mmol/L Chloride (96-108) mmol/L Carbon Dioxide (22-29) mmol/L Anion Gap (12-20) BUN (9-16) mg/dL Creatinine (0.5-1.4) mg/dL Estim Creat Clear Calc Estimated GFR Random Glucose (60-115) mg/dL Calcium (8.4-10.2) mg/dL Total Creatine Kinase 2383 H D (26-140) U/L Troponin I High Sens 152.9 H (<3.5-17.0) ng/L B-Natriuretic Peptide 69 (<100) pg/mL Urine Color Urine Appearance Urine pH (5.0-8.0) Ur Specific [place] (1.005-1.025) Urine Protein (NEG-TRACE) MG/DL Urine Glucose (UA) (NEG) MG/DL Urine Ketones (NEG) MG/DL Urine Blood (NEG) Urine Nitrite (NEG) Ur Leukocyte Esterase (NEG) Urine RBC (0) /HPF Urine WBC (0-4) /HPF Ur Squamous Epith Cells /LPF Urine Bacteria /LPF 08/30/20 Range/Units 22:23 WBC (4.8-10.8) X10*3/uL RBC (4.20-5.50) X10*6/uL Hgb (12.0-16.0) g/dl Hct (37-47) % MCV (80-98) fL MCH (27.0-33.0) pg MCHC (31.0-35.0) g/dl RDW (11.0-16.0) % Plt Count (160-400) X10*3/uL MPV (9.4-12.3) fL Immature Gran % (Auto) (0.0-0.4) % Neut % (Auto) (45-73) % Lymph % (Auto) (20-40) % [place] % (Auto) (2-11) % Eos % (Auto) (0-4) % Baso % (Auto) (0-2) % Lymph # (Auto) (1.2-4.9) X10*3/uL [place] # (Auto) (0.1-1.2) X10*3/uL Eos # (Auto) (0.0-0.4) X10*3/uL Baso # (Auto) (0.0-0.2) X10*3/uL Abs Immat Gran (auto) (0.00-0.03) X10*3/uL Absolute Neuts (auto) (2.0-8.3) X10*3/uL Absolute Nucleated RBC (0.0-0.012) X10*3/uL Nucleated RBC % (auto) (0.0-0.2) /100WBC Hold Blue Top Sodium (135-145) mmol/L Potassium (3.3-5.1) mmol/L Chloride (96-108) mmol/L Carbon Dioxide (22-29) mmol/L Anion Gap (12-20) BUN (9-16) mg/dL Creatinine (0.5-1.4) mg/dL Estim Creat Clear Calc Estimated GFR Random Glucose (60-115) mg/dL Calcium (8.4-10.2) mg/dL Total Creatine Kinase (26-140) U/L Troponin I High Sens (<3.5-17.0) ng/L B-Natriuretic Peptide (<100) pg/mL Urine Color YELLOW Urine Appearance CLEAR Urine pH 5.5 (5.0-8.0) Ur Specific [place] <= 1.005 (1.005-1.025) Urine Protein NEG (NEG-TRACE) MG/DL Urine Glucose (UA) NEG (NEG) MG/DL Urine Ketones NEG (NEG) MG/DL Urine Blood 1+ H (NEG) Urine Nitrite POS H (NEG) Ur Leukocyte Esterase NEG (NEG) Urine RBC 1-4 (0) /HPF Urine WBC 5-9 H (0-4) /HPF Ur Squamous Epith Cells 1+ /LPF Urine Bacteria 4+ /LPF Imaging Data CT scan - head: Radiologist's impression: There is no evidence of acute intracranial hemorrhage or territorial infarction. No abnormal mass effect or midline shift is seen. [place] to white matter differentiation is well preserved. No extra-axial fluid collections are identified. The ventricles are symmetrical in size but mildly prominent. There is diffuse periventricular hypodensity in both cerebral hemispheres without mass effect. There is dystrophic bibasilar ganglia calcification. The osseous structures and soft tissues are normal. There is a lobulated soft tissue density in the right maxillary sinus with central hyperdense calcifications likely long-standing retention cyst, less likely polyp. Rest of the paranasal sinuses are well-aerated and clear.. CT/CT head/brain wo con IMPRESSION: No acute intracranial process seen. ECG Data Attestation: I personally reviewed and interpreted this ECG as follows: (Heart rate 70, left bundle-branch block, no ST segment depression or elevation, no T-wave inversion, QTC 514) Discharge Plan Discharge Clinical Impression: Weakness, Acute UTI Rhabdomyolysis Qualifiers: Encounter type: initial encounter Patient Disposition: Admitted As Inpatient
[2020-08-30] MEDS: traMADoL HCL 50 MG TABLET PO (22:21)
[2020-08-30 22:40] LABS: Glucose Urine UA NEG (NEG); Leukocyte Esterase Urine NEG (NEG); Nitrite Urine POS (NEG); PH 5.5 (5.0-8.0); Specific Gravity - Urine <= 1.005 (1.005-1.025); UACC Culture Trigger YES; Urine Blood 1+ (NEG); Urine Ketones NEG (NEG); Urine Protein NEG (NEG-TRACE)
[2020-08-30 22:43] LABS: Appearance Urine CLEAR; Color Urine YELLOW
[2020-08-30 22:47] LABS: Bacteria Urine 4+ /LPF; Squamous Epithelial Cell Urine 1+ /LPF
[2020-08-30 22:52] LABS: Troponin-I High Sensitivity 152.9 ng/L (<3.5-17.0)
[2020-08-30] MEDS: 0.9 % Sodium Chloride 1,000 ML 250 ML IVCONT (23:10)
[2020-08-30] MEDS: cefTRIAXone sodium 1 GM in 0.9 % Sodium Chloride 50 ML IV (23:20)
[2020-08-31] VITALS: BP 158/60; PULSE 75; RESP 16; O2SAT 97
--- NOTE | 2020-08-31 00:41 | P.HPHOSP_ITS ---
History of Present Illness Date of Service: 08/31/20 Chief Complaint: fall This is an 84-year-old female Citizen [place]speaking with past medical history of asthma, CHF, CAD, DM, LBBB, IBS, HTN, who presents the hospital with multiple episodes of falls. Patient daughter at bedside gives most of the history as patient is [place]speaking only. According to the daughter, patient was brought into the hospital the day prior after being found on the floor for whole night. Patient reports that she fell off the bed and denies any head injury, no loss of consciousness, at the time patient was advised to be admitted for elevated CPK but refused and left against medical advice. Returns today after being found on the floor by her daughter once again but this time for about an hour. Patient reports that she felt weak after brain, wobbled and fell to the floor without loss of consciousness. She denies any chest pain, denies any abdominal pain nausea or vomiting. She does report that she has pain all over her body, acute worsening. No fever or chills, no diarrhea or constipation, no urinary symptoms although her daughter reports that she has not been peeing a lot and has had poor oral intake for the past 2 days. The daughter also reports that she noted her mother to be weak for the past 2 days. Review of system otherwise negative On arrival to the ED patient hemodynamically stable with no significant abnormal vitals Labs are significant for WBC count of 10.8, CPK was elevated from 1500 on 08/29 to 2300 on 08/30, BUN of 16, creatinine of 0.99, UA positive for nitrites, WBC, EKG shows normal sinus rhythm with no evidence of ACS. On August 29 patient's troponin was checked which was 166 dropped to 129, today's troponin is 152 with no chest pain, EKG as above Head CT negative for any acute intracranial process Past medical history as below and confirmed with patient's daughter at bedside Review of Systems Review of Systems: Yes all other systems are reviewed and are negative [facility] Medical History Asthma Congestive heart failure Coronary artery disease Diabetes mellitus Diverticulitis Hypertension Irritable bowel syndrome Left bundle branch block Osteoporosis Family History Father CVD (cardiovascular disease) Mother Diabetes CVD (cardiovascular disease) Surgical History History of cholecystectomy History of esophagogastroduodenoscopy (EGD) Hx of colonoscopy S/P appendectomy S/P coronary artery stent placement S/P hernia repair Social History Household Members: Children Housing: House Alcohol intake: current Alcohol intake frequency: does not drink Smoking Status: Unknown if ever smoked Advance Directives: Yes Advance Directives Information Provided: No Advance Directives on File: No Meds Allergies Allergy/AdvReac Type Severity Reaction Status Date / Time almond Allergy Intermediate HIVES Verified 08/30/20 18:07 moxifloxacin [From Avelox] Allergy Mild Rash Verified 08/30/20 18:07 peanut [Peanut] Allergy Mild Rash Verified 08/30/20 18:07 Active Medications: Current Medications Generic Name Dose Route Start Last Admin Trade Name Freq PRN Reason Stop Dose Admin Sodium Chloride 1,000 mls @ 250 mls/hr 08/30/20 23:10 Ns IVCONT 08/31/20 03:09 .Q4H ONE Home Medications Medication Instructions Recorded Confirmed Last Taken Type acetaminophen 650 mg 650 mg PO Q8H 02/11/20 08/31/20 Unknown History tablet,extended release albuterol sulfate 2.5 mg INHALATION QID 02/11/20 08/31/20 Unknown History albuterol sulfate 90 mcg/actuation 2 puff INHALATION Q4-6H PRN 02/11/20 Unknown History aerosol inhaler aspirin 81 mg tablet,delayed 81 mg PO DAILY 02/11/20 08/31/20 Unknown History release atorvastatin 40 mg tablet 40 mg PO DAILY 02/11/20 08/31/20 Unknown History calcium carbonate 500 mg (1,250 1 tab PO BID 02/11/20 08/31/20 Unknown History mg)-vitamin D3 200 unit tablet fluticasone propionate 220 2 puff INHALATION BID 02/11/20 08/31/20 Unknown History mcg/actuation HFA aerosol inhaler fluticasone propionate 50 1 spray INTRANASAL DAILY 02/11/20 Unknown History mcg/actuation nasal spray,suspension irbesartan 300 mg tablet 300 mg PO DAILY 02/11/20 08/31/20 Unknown History loratadine 10 mg tablet 10 mg PO DAILY 02/11/20 08/31/20 Unknown History nitroglycerin 0.4 mg sublingual 0.4 mg SUBLINGUAL Q5M PRN 02/11/20 08/31/20 Unknown History tablet omega-3 fatty acids 1,000 mg 1,000 mg PO BID 02/11/20 08/31/20 Unknown History capsule tramadol 50 mg tablet 50 mg PO BID PRN 02/11/20 08/31/20 Unknown History zolpidem 10 mg tablet 10 mg PO BEDTIME tab 02/11/20 08/31/20 Unknown History gabapentin 600 mg tablet 300 mg PO TID tab 03/02/20 08/31/20 Unknown History calcium polycarbophil 625 mg tablet 1,250 mg PO BID 03/21/20 03/21/20 Unknown History simethicone 125 mg capsule 125 mg PO TID-QID PRN 03/21/20 08/31/20 Unknown History insulin aspar prt-insulin aspart 10 unit SUBCUT BID 06/07/20 06/07/20 Unknown History 100 unit/mL (70-30) subcutaneous soln Physical Exam Vital Signs and Narrative: Vital Signs: Last Vital Signs Temp 98.1 F 08/30/20 18:07 Pulse 78 08/30/20 18:07 Resp 16 08/30/20 18:07 BP 165/69 H 08/30/20 18:07 Pulse Ox 97 08/30/20 18:07 Body Mass Index 26.9 Const: General: cooperative and no acute distress Orientation/cons ciousness: patient oriented x3 Eyes: General: appearance normal, both eyes and all related structures Resp: Effort & Inspection: normal respiratory effort and able to speak in comp lete sentences Cardio: Rate: regular rate Rhythm: regular rhythm GI: Palpation (GI): Soft to palpation Auscultation: normal bowel sounds Skin: General skin exam: no rashes or lesions noted Neuro: General: patient oriented x3 Cognition (Neuro): normal cognition Extrem: General: Yes normal to inspection and Yes no pedal edema Results Labs CBC and Chem 7: 08/30/20 20:31 08/30/20 20:31 Labs: Laboratory Results - last 24 hr 08/30/20 08/30/20 08/30/20 20:31 20:31 20:31 MCV 88.4 MCH 29.9 MCHC 33.9 RDW 12.5 Plt Count 220 MPV 10.5 Immature Gran % (Auto) 0.3 Neut % (Auto) 65.7 Lymph % (Auto) 23.8 [place] % (Auto) 6.8 Eos % (Auto) 2.4 Baso % (Auto) 1.0 Lymph # (Auto) 2.6 [place] # (Auto) 0.7 Eos # (Auto) 0.3 Baso # (Auto) 0.1 Abs Immat Gran (auto) 0.03 Absolute Neuts (auto) 7.1 Absolute Nucleated RBC 0.000 Nucleated RBC % (auto) 0.0 Hold Blue Top SEE NOTE Anion Gap 14 Estim Creat Clear Calc 29.1 Estimated GFR 53 Random Glucose 138 H Calcium 9.2 D Total Creatine Kinase Troponin I High Sens B-Natriuretic Peptide Urine Color Urine Appearance Urine pH Ur Specific [place] Urine Protein Urine Glucose (UA) Urine Ketones Urine Blood Urine Nitrite Ur Leukocyte Esterase Urine RBC Urine WBC Ur Squamous Epith Cells Urine Bacteria 08/30/20 08/30/20 08/30/20 20:31 20:31 22:23 MCV MCH MCHC RDW Plt Count MPV Immature Gran % (Auto) Neut % (Auto) Lymph % (Auto) [place] % (Auto) Eos % (Auto) Baso % (Auto) Lymph # (Auto) [place] # (Auto) Eos # (Auto) Baso # (Auto) Abs Immat Gran (auto) Absolute Neuts (auto) Absolute Nucleated RBC Nucleated RBC % (auto) Hold Blue Top Anion Gap Estim Creat Clear Calc Estimated GFR Random Glucose Calcium Total Creatine Kinase 2383 H D Troponin I High Sens 152.9 H B-Natriuretic Peptide 69 Urine Color Urine Appearance Urine pH Ur Specific [place] Urine Protein Urine Glucose (UA) Urine Ketones Urine Blood Urine Nitrite Ur Leukocyte Esterase Urine RBC Urine WBC Ur Squamous Epith Cells Urine Bacteria 08/30/20 22:23 MCV MCH MCHC RDW Plt Count MPV Immature Gran % (Auto) Neut % (Auto) Lymph % (Auto) [place] % (Auto) Eos % (Auto) Baso % (Auto) Lymph # (Auto) [place] # (Auto) Eos # (Auto) Baso # (Auto) Abs Immat Gran (auto) Absolute Neuts (auto) Absolute Nucleated RBC Nucleated RBC % (auto) Hold Blue Top Anion Gap Estim Creat Clear Calc Estimated GFR Random Glucose Calcium Total Creatine Kinase Troponin I High Sens B-Natriuretic Peptide Urine Color YELLOW Urine Appearance CLEAR Urine pH 5.5 Ur Specific [place] <= 1.005 Urine Protein NEG Urine Glucose (UA) NEG Urine Ketones NEG Urine Blood 1+ H Urine Nitrite POS H Ur Leukocyte Esterase NEG Urine RBC 1-4 Urine WBC 5-9 H Ur Squamous Epith Cells 1+ Urine Bacteria 4+ Imaging Radiologist's Impressions: Impressions Head CT 08/30/20 22:13 IMPRESSION: No acute intracranial process seen. Assessment and Plan (1) Acute UTI: Status: Acute (2) Weakness: Status: Acute (3) Rhabdomyolysis: Qualifiers: Encounter type: initial encounter Status: Acute (4) Abnormal EKG: Status: Acute (5) Elevated troponin: Status: Acute (6) Fall: Status: Acute 84-year-old female who presents to the hospital with falls, weakness and poor oral intake found to have UTI as well as rhabdo # rhabdomyolysis - secondary to fall - will start her on IV fluids - follow CPK # acute UTI - will start on ceftriaxone - follow cultures # fall - unclear if she syncopized, both episodes were unwitnessed - PT OT # elevated troponin, EKG - no chest pain, no evidence of ACS - will consult Cardiology given her falls and elevated troponin - echocardiogram DVT prophylaxis: heparin sub q
[2020-08-31] MEDS: Lidocaine 4 % Patch ADH..PATCH 1 PATCH TRANSDERMA (01:52)
[2020-08-31] MEDS: Lactated Ringers 1,000 ML 80 ML IVCONT (01:53)
--- NOTE | 2020-08-31 01:53 | PC.NURSE ---
PT TO COMMODE AT BEDSIDE WITH ASSISTANCE. LIDOCAINE PATCH APPLIED TO NECK AREA. LR UP AND RUNNING ON PUMP PER EMAR. VS OBTAINED. PT AWAITING FOR ROOM ASSIGNMENT.
--- NOTE | 2020-08-31 02:15 | PC.NURSE ---
PT'S DAUGHTER LEFT FOR HOME. PT DENIES ANY COMPLAINTS. RESPIRATIONS EASY, N/L. SKIN W/D. LR UP AND RUNNING AT 80ML/HR ON PUMP. PT AWAITING FOR ROOM ASSIGNMENT.
[2020-08-31 02:17] VITALS: BP 162/69; PULSE 72; RESP 16; O2SAT 97
[2020-08-31 03:53] LABS: COVID-19 Test Negative (Negative); IDNOW Serial# 9DD0AD1C
[2020-08-31 05:40] VITALS: BP 188/81; PULSE 79; RESP 15; O2SAT 97
[2020-08-31 07:42] LABS: Glucose, Whole Blood 118 mg/dL (60-115)
[2020-08-31] MEDS: Heparin Sodium,Porcine 5,000 UNIT/ML VIAL 5000 UNIT SUBCUT (09:34)
[2020-08-31] MEDS: Acetaminophen 325 MG TABLET 650 MG PO (10:58)
--- NOTE | 2020-08-31 11:16 | P.CONCA_ITS ---
History of Present Illness History of Present Illness Date of Service: 08/31/20 Chief complaint: UTI, Rhabdo, Fall Narrative: This is a cardiology consultation regarding elevated troponins. Patient has been admitted with recurrent falls. She has apparently found on the floor by the daughter and hence admitted. In this setting, she has been found to have elevated troponins and elevated CK and hence we have been asked to see her. Otherwise, she is describing pain all over the body in fact everywhere. No clear anginal-type symptoms at this time. She is also complaining of urinary s ymptoms. Patient has history of coronary disease. There is a history of cardiac catheterization from 2015 that showed 80% mid LAD lesion, which was stented. She had seen from [facility] in the past but not clear who she sees recently. Review of Systems Review of Systems: Yes all other systems are reviewed and are negative Cardiovascular: Cardiovascular: Reports as per HPI, Reports no additional cardiovascular complaints, Denies acrocyanosis, Denies cool extremities, Denies painful fingertips, Reports chest pain, Reports chest pain at rest, Denies diaphoresis, Denies syncope, Denies irregular heart rhythm, Denies claudication, Denies leg edema, Denies lightheadedness, Denies palpitations and Denies dyspnea Respiratory: Respiratory: Denies dyspnea Neurologic: Denies syncope Endocrine: Endocrine: Denies palpitations COUNT INCLUDES THE [facility] Past Medical History Medical History (Updated 08/31/20 @ 11:25 by Freddy Zepeda MD) Asthma Atherosclerotic cardiovascular disease Congestive heart failure Coronary artery disease Diabetes mellitus Diverticulitis Hypertension Irritable bowel syndrome Left bundle branch block Osteoporosis Family History Family History Father CVD (cardiovascular disease) Mother Diabetes CVD (cardiovascular disease) Surgical History Surgical History History of cholecystectomy History of esophagogastroduodenoscopy (EGD) Hx of colonoscopy S/P appendectomy S/P coronary artery stent placement S/P hernia repair Social History Social History Household Members: Children Housing: House Alcohol intake: current Alcohol intake frequency: does not drink Smoking Status: Unknown if ever smoked Advance Directives: Yes Advance Directives Information Provided: No Advance Directives on File: No Meds Allergies Allergy/AdvReac Type Severity Reaction Status Date / Time almond Allergy Intermediate HIVES Verified 08/30/20 18:07 moxifloxacin [From Avelox] Allergy Mild Rash Verified 08/30/20 18:07 peanut [Peanut] Allergy Mild Rash Verified 08/30/20 18:07 Active Medications: Current Medications Generic Name Dose Route Start Last Admin Trade Name Freq PRN Reason Stop Dose Admin Acetaminophen 650 mg 08/31/20 00:58 08/31/20 10:58 Acetaminophen 325 Mg Tablet PO 650 mg Q6H PRN Administration Pain, Mild (Pain Scale 1-3) Docusate Sodium 100 mg 08/31/20 00:58 Docusate Sodium 100 Mg Capsule PO DAILY PRN Constipation Heparin Sodium (Porcine) 5,000 unit 08/31/20 07:15 08/31/20 09:34 Heparin Sodium,Porcine 5,000 Unit/Ml Vial SUBCUT 5,000 unit Q12H ON LICENSE OF [facility] Administration Ceftriaxone Sodium 1 gm/ 50 mls @ 100 mls/hr 08/31/20 22:00 08/31/20 05:54 Sodium Chloride IV Not Given Q24H ON LICENSE OF [facility] Lactated Ringer's 1,000 mls @ 80 mls/hr 08/31/20 00:58 08/31/20 02:21 Lr IVCONT Infused .[id number] ON LICENSE OF [facility] Infusion Insulin Human Lispro 0 unit 08/31/20 07:30 08/31/20 09:40 Insulin Lispro 100 Unit/Ml 3 Ml Vial SUBCUT Not Given QIDACHS ON LICENSE OF [facility] Protocol Ondansetron HCl 4 mg 08/31/20 00:58 Ondansetron Hcl 4 Mg/2 Ml Vial IVPUSH Q8H PRN Nausea and Vomiting Sodium Chloride 3 ml 08/31/20 08:00 08/31/20 09:35 0.9 % Sodium Chloride Flush 3 Ml Syringe IVFLUSH Not Given QSHIFT ON LICENSE OF [facility] Home Medications Medication Instructions Recorded Confirmed Last Taken Type acetaminophen 650 mg 650 mg PO Q8H 02/11/20 08/31/20 Unknown History tablet,extended release albuterol sulfate 2.5 mg INHALATION QID 02/11/20 08/31/20 Unknown History albuterol sulfate 90 mcg/actuation 2 puff INHALATION Q4-6H PRN 02/11/20 08/31/20 Unknown History aerosol inhaler aspirin 81 mg tablet,delayed 81 mg PO DAILY 02/11/20 08/31/20 Unknown History release atorvastatin 40 mg tablet 40 mg PO DAILY 02/11/20 08/31/20 Unknown History calcium carbonate 500 mg (1,250 1 tab PO BID 02/11/20 08/31/20 Unknown History mg)-vitamin D3 200 unit tablet fluticasone propionate 220 2 puff INHALATION BID 02/11/20 08/31/20 Unknown History mcg/actuation HFA aerosol inhaler irbesartan 300 mg tablet 300 mg PO DAILY 02/11/20 08/31/20 Unknown History loratadine 10 mg tablet 10 mg PO DAILY 02/11/20 08/31/20 Unknown History nitroglycerin 0.4 mg sublingual 0.4 mg SUBLINGUAL Q5M PRN 02/11/20 08/31/20 Unknown History tablet omega-3 fatty acids 1,000 mg 1,000 mg PO BID 02/11/20 08/31/20 Unknown History capsule tramadol 50 mg tablet 50 mg PO BID PRN 02/11/20 08/31/20 Unknown History zolpidem 10 mg tablet 10 mg PO BEDTIME PRN tab 02/11/20 08/31/20 Unknown History gabapentin 600 mg tablet 300 mg PO TID tab 03/02/20 08/31/20 Unknown History calcium polycarbophil 625 mg tablet 1,250 mg PO BID 03/21/20 03/21/20 Unknown History simethicone 125 mg capsule 125 mg PO TID-QID PRN 03/21/20 08/31/20 Unknown History insulin asp prt-insulin aspart See Rx Instructions .ROUTE .COMPLEX 08/31/20 Unknown History [Novolog Mix 70-30FlexPen U-100] metoclopramide HCl 1 tab PO TID 08/31/20 08/31/20 Unknown History triamcinolone acetonide 2 spray INTRANASAL DAILY 08/31/20 08/31/20 Unknown History Physical Exam Vital Signs: Vital Signs: Last Vital Signs Temp 98.1 F 08/30/20 18:07 Pulse 79 08/31/20 05:40 Resp 15 08/31/20 05:40 BP 188/81 H 08/31/20 05:40 Pulse Ox 97 08/31/20 05:40 Body Mass Index 26.9 Const: General: cooperative, comfortable and no acute distress Orientation/consciousness: patient oriented x3 HENMT: Other: Unremarkable Neck: Neck: Yes normal visual inspection Chest: Chest palpation & inspection: normal inspection of the chest Resp: Auscultation: clear to auscultation bilaterally, no crackles and no wheezes Cardio: Jugular venous distension: no JVD Palpation: normal PMI Heart sounds: S1 normal heart sound present, S2 normal heart sound present, no gallops, Murmur heart sound present systolic II/ and at the right sternal border and no rubs GI: Palpation (GI): Soft to palpation Back/Spine/Pelvis: Other: unremarkable Skin: General skin exam: no rashes or lesions noted Neuro: General: patient oriented x3 Extrem: General: Yes no clubbing, cyanosis or edema Psych: Mental Status: mental status grossly normal Results Labs and Meds Result diagrams: 08/30/20 20:31 08/30/20 20:31 Lab results: Laboratory Results - last 24 hr 08/30/20 08/30/20 08/30/20 20:31 20:31 20:31 WBC 10.8 RBC 4.38 Hgb 13.1 Hct 38.7 MCV 88.4 MCH 29.9 MCHC 33.9 RDW 12.5 Plt Count 220 MPV 10.5 Immature Gran % (Auto) 0.3 Neut % (Auto) 65.7 Lymph % (Auto) 23.8 [place] % (Auto) 6.8 Eos % (Auto) 2.4 Baso % (Auto) 1.0 Lymph # (Auto) 2.6 [place] # (Auto) 0.7 Eos # (Auto) 0.3 Baso # (Auto) 0.1 Abs Immat Gran (auto) 0.03 Absolute Neuts (auto) 7.1 Absolute Nucleated RBC 0.000 Nucleated RBC % (auto) 0.0 Hold Blue Top SEE NOTE Sodium 139 Potassium 3.4 Chloride 105 Carbon Dioxide 23 Anion Gap 14 BUN 16 Creatinine 0.99 Estim Creat Clear Calc 29.1 Estimated GFR 53 POC Glucose Random Glucose 138 H Calcium 9.2 D Total Creatine Kinase Troponin I High Sens B-Natriuretic Peptide Urine Color Urine Appearance Urine pH Ur Specific [place] Urine Protein Urine Glucose (UA) Urine Ketones Urine Blood Urine Nitrite Ur Leukocyte Esterase Urine RBC Urine WBC Ur Squamous Epith Cells Urine Bacteria COVID-19 (MATA) COVID-19 Clin Com 08/30/20 08/30/20 08/30/20 20:31 20:31 22:23 WBC RBC Hgb Hct MCV MCH MCHC RDW Plt Count MPV Immature Gran % (Auto) Neut % (Auto) Lymph % (Auto) [place] % (Auto) Eos % (Auto) Baso % (Auto) Lymph # (Auto) [place] # (Auto) Eos # (Auto) Baso # (Auto) Abs Immat Gran (auto) Absolute Neuts (auto) Absolute Nucleated RBC Nucleated RBC % (auto) Hold Blue Top Sodium Potassium Chloride Carbon Dioxide Anion Gap BUN Creatinine Estim Creat Clear Calc Estimated GFR POC Glucose Random Glucose Calcium Total Creatine Kinase 2383 H D Troponin I High Sens 152.9 H B-Natriuretic Peptide 69 Urine Color Urine Appearance Urine pH Ur Specific [place] Urine Protein Urine Glucose (UA) Urine Ketones Urine Blood Urine Nitrite Ur Leukocyte Esterase Urine RBC Urine WBC Ur Squamous Epith Cells Urine Bacteria COVID-19 (MATA) COVID-[place] 08/30/20 08/31/20 08/31/20 22:23 03:32 07:38 WBC RBC Hgb Hct MCV MCH MCHC RDW Plt Count MPV Immature Gran % (Auto) Neut % (Auto) Lymph % (Auto) [place] % (Auto) Eos % (Auto) Baso % (Auto) Lymph # (Auto) [place] # (Auto) Eos # (Auto) Baso # (Auto) Abs Immat Gran (auto) Absolute Neuts (auto) Absolute Nucleated RBC Nucleated RBC % (auto) Hold Blue Top Sodium Potassium Chloride Carbon Dioxide Anion Gap BUN Creatinine Estim Creat Clear Calc Estimated GFR POC Glucose 118 H Random Glucose Calcium Total Creatine Kinase Troponin I High Sens B-Natriuretic Peptide Urine Color YELLOW Urine Appearance CLEAR Urine pH 5.5 Ur Specific [place] <= 1.005 Urine Protein NEG Urine Glucose (UA) NEG Urine Ketones NEG Urine Blood 1+ H Urine Nitrite POS H Ur Leukocyte Esterase NEG Urine RBC 1-4 Urine WBC 5-9 H Ur Squamous Epith Cells 1+ Urine Bacteria 4+ COVID-19 (MATA) Negative COVID-19 [employer] See Note ECG Attestation: I personally reviewed and interpreted this ECG as follows: Interpretation: EKG on admission shows sinus rhythm with a left bundle branch block pattern. Seems to be chronic finding. Imaging Radiologist's impression: Impressions Head CT 08/30/20 22:13 IMPRESSION: No acute intracranial process seen. Assessment and Plan (1) Fall: Qualifiers: Encounter type: initial encounter Qualified Code(s): W19.XXXA - Unspecified fall, initial encounter Status: Acute (2) Elevated troponin: Status: Acute (3) Rhabdomyolysis: Qualifiers: Encounter type: initial encounter Rhabdomyolysis type: traumatic Qualified Code(s): T79.6XXA - Traumatic ischemia of muscle, initial encounter Status: Acute (4) Atherosclerotic cardiovascular disease: Status: Acute (5) Non-rheumatic aortic stenosis: Status: Acute (6) Acute UTI: Status: Acute Her high sensitivity troponins as well as CK elevated. Based on cardiac catheterization from 2014, she had mid LAD 80% stenosis which was stented. She had 40% stenosis in the distal RCA and no significant disease elsewhere. The current biomarker elevation is most likely from the rhabdomyolysis and unlikely to be from acute coronary syndrome. For home medications, she is on aspirin, statins that may be continued. No need for any IV heparin. On examination, she has murmur of aortic stenosis versus sclerosis and we can get an echocardiogram to assess that further.
--- NOTE | 2020-08-31 11:16 | PC.NURSE ---
NOTIFIED AROUND 10AM PT DIDN'T RECEIVE BREAKFAST, PT REQUESTED TOAST AND COFFEE, PT WAITING ON BED ASSIGNMENT. NEEDS BEING MET
[2020-08-31 11:28] LABS: Glucose, Whole Blood 133 mg/dL (60-115)
--- NOTE | 2020-08-31 11:36 | PC.NURSE ---
CALLED TO GIVE REPORT RN WILL CALL BACK
--- NOTE | 2020-08-31 12:34 | PM.DS ---
DS: Providers Provider Date of Service: 09/02/20 Date of admission: 08/31/20 00:41 Primary care physician: Breann Mcgrath DO Consults: 08/31/20 06:53 Consult to Cardiology Routine Consulting Provider: Freddy Zepeda Reason for consultation: syncope, abnormal EKG Has provider been notified: No DS: Diagnosis Discharge Diagnosis (1) Fall: Status: Acute (2) Elevated troponin: Status: Acute (3) Rhabdomyolysis: Status: Acute (4) Atherosclerotic cardiovascular disease: Status: Acute (5) Non-rheumatic aortic stenosis: Status: Acute (6) Acute UTI: Status: Acute DS: Medications Discharge Medications Home Medications: Home Medications Medication Instructions Recorded Confirmed acetaminophen 650 mg 650 mg PO Q8H 02/11/20 08/31/20 tablet,extended release albuterol sulfate 2.5 mg INHALATION QID 02/11/20 08/31/20 albuterol sulfate 90 mcg/actuation 2 puff INHALATION Q4-6H PRN 02/11/20 08/31/20 aerosol inhaler aspirin 81 mg tablet,delayed 81 mg PO DAILY 02/11/20 08/31/20 release atorvastatin 40 mg tablet 40 mg PO DAILY 02/11/20 08/31/20 calcium carbonate 500 mg (1,250 1 tab PO BID 02/11/20 08/31/20 mg)-vitamin D3 200 unit tablet fluticasone propionate 220 2 puff INHALATION BID 02/11/20 08/31/20 mcg/actuation HFA aerosol inhaler irbesartan 300 mg tablet 300 mg PO DAILY 02/11/20 08/31/20 loratadine 10 mg tablet 10 mg PO DAILY 02/11/20 08/31/20 nitroglycerin 0.4 mg sublingual 0.4 mg SUBLINGUAL Q5M PRN 02/11/20 08/31/20 tablet omega-3 fatty acids 1,000 mg 1,000 mg PO BID 02/11/20 08/31/20 capsule tramadol 50 mg tablet 50 mg PO BID PRN 02/11/20 08/31/20 zolpidem 10 mg tablet 10 mg PO BEDTIME PRN tab 02/11/20 08/31/20 gabapentin 600 mg tablet 300 mg PO TID tab 03/02/20 08/31/20 calcium polycarbophil 625 mg tablet 1,250 mg PO BID 03/21/20 03/21/20 simethicone 125 mg capsule 125 mg PO TID-QID PRN 03/21/20 08/31/20 insulin asp prt-insulin aspart See Rx Instructions .ROUTE .COMPLEX 08/31/20 [Novolog Mix 70-30FlexPen U-100] metoclopramide HCl 1 tab PO TID 08/31/20 08/31/20 triamcinolone acetonide 2 spray INTRANASAL DAILY 08/31/20 08/31/20 Previous Rx's Medication Instructions Recorded sennosides 8.6 mg capsule 17.2 mg PO BEDTIME 30 Days #60 cap 03/22/20 lubiprostone 24 mcg capsule 24 mcg PO BID #180 cap 05/23/20 metoclopramide HCl 10 mg tablet 10 mg PO .TIDAC 30 Days #90 tab 06/07/20 Saccharomyces boulardii 250 mg 250 mg PO BID 30 Days #60 cap 07/25/20 capsule docusate sodium 100 mg capsule 100 mg PO DAILY #30 cap 08/24/20 DS: Summary Hospital Course Hospital Course: From H&P This is an 84-year-old female Togolese-speaking with past medical history of asthma, CHF, CAD, DM, LBBB, IBS, HTN, who presents the hospital with multiple episodes of falls. Patient daughter at bedside gives most of the history as patient is Togolese-speaking only. According to the daughter, patient was brought into the hospital the day prior after being found on the floor for whole night. Patient reports that she fell off the bed and denies any head injury, no loss of consciousness, at the time patient was advised to be admitted for elevated CPK but refused and left against medical advice. Returns today after being found on the floor by her daughter once again but this time for about an hour. Patient reports that she felt weak after brain, wobbled and fell to the floor without loss of consciousness. She denies any chest pain, denies any abdominal pain nausea or vomiting. She does report that she has pain all over her body, acute worsening. No fever or chills, no diarrhea or constipation, no urinary symptoms although her daughter reports that she has not been peeing a lot and has had poor oral intake for the past 2 days. The daughter also reports that she noted her mother to be weak for the past 2 days. Was called that the patient wanted to leave against medical advice. This was discussed with daughter at the bedside with the use of a Credit Department Manager. The patient is awake and alert and lives with her daughter. The reason for admission and need for staying in the hospital including UTI, fall ?syncope and rhabdo was discussed with them both. The patient and her daughter verbalize their understand and the risk of leaving including worsening infection, sepsis and possible . Time Spent with Patient Time attestation: Total time spent providing and/or coordinating discharge services: Discharge coordination time: Greater than 30 minutes Physical Exam Vital Signs: Vital Signs: Last Vital Signs Temp 98.1 F 08/30/20 18:07 Pulse 79 08/31/20 05:40 Resp 15 08/31/20 05:40 BP 188/81 H 08/31/20 05:40 Pulse Ox 97 08/31/20 05:40 Body Mass Index 26.9 Const: Nutritional Appearance: well nourished HENMT: Head: Yes normocephalic and Yes atraumatic Eyes: Sclerae: sclerae normal Chest: Chest palpation & inspection: normal inspection of the chest Resp: Effort & Inspection: normal respiratory effort and no respiratory distress Cardio: Rate: regular rate GI: Palpation (GI): Soft to palpation and nontender Neuro: Cranial nerves: Yes CN's II-XII intact bilaterally and Yes Bilaterally intact EOM present DS: Data Data Completed and Pending Labs on day of discharge: Laboratory Results - last 24 hr 08/30/20 08/30/20 08/30/20 20:31 20:31 20:31 WBC 10.8 RBC 4.38 Hgb 13.1 Hct 38.7 MCV 88.4 MCH 29.9 MCHC 33.9 RDW 12.5 Plt Count 220 MPV 10.5 Immature Gran % (Auto) 0.3 Neut % (Auto) 65.7 Lymph % (Auto) 23.8 [place] % (Auto) 6.8 Eos % (Auto) 2.4 Baso % (Auto) 1.0 Lymph # (Auto) 2.6 [place] # (Auto) 0.7 Eos # (Auto) 0.3 Baso # (Auto) 0.1 Abs Immat Gran (auto) 0.03 Absolute Neuts (auto) 7.1 Absolute Nucleated RBC 0.000 Nucleated RBC % (auto) 0.0 Hold Blue Top SEE NOTE Sodium 139 Potassium 3.4 Chloride 105 Carbon Dioxide 23 Anion Gap 14 BUN 16 Creatinine 0.99 Estim Creat Clear Calc 29.1 Estimated GFR 53 POC Glucose Random Glucose 138 H Calcium 9.2 D Total Creatine Kinase Troponin I High Sens B-Natriuretic Peptide Urine Color Urine Appearance Urine pH Ur Specific [place] Urine Protein Urine Glucose (UA) Urine Ketones Urine Blood Urine Nitrite Ur Leukocyte Esterase Urine RBC Urine WBC Ur Squamous Epith Cells Urine Bacteria COVID-19 (MATA) COVID-19 [employer] Com 08/30/20 08/30/20 08/30/20 20:31 20:31 22:23 WBC RBC Hgb Hct MCV MCH MCHC RDW Plt Count MPV Immature Gran % (Auto) Neut % (Auto) Lymph % (Auto) [place] % (Auto) Eos % (Auto) Baso % (Auto) Lymph # (Auto) [place] # (Auto) Eos # (Auto) Baso # (Auto) Abs Immat Gran (auto) Absolute Neuts (auto) Absolute Nucleated RBC Nucleated RBC % (auto) Hold Blue Top Sodium Potassium Chloride Carbon Dioxide Anion Gap BUN Creatinine Estim Creat Clear Calc Estimated GFR POC Glucose Random Glucose Calcium Total Creatine Kinase 2383 H D Troponin I High Sens 152.9 H B-Natriuretic Peptide 69 Urine Color Urine Appearance Urine pH Ur Specific [place] Urine Protein Urine Glucose (UA) Urine Ketones Urine Blood Urine Nitrite Ur Leukocyte Esterase Urine RBC Urine WBC Ur Squamous Epith Cells Urine Bacteria COVID-19 (MATA) COVID-19 [employer] 08/30/20 08/31/20 08/31/20 22:23 03:32 07:38 WBC RBC Hgb Hct MCV MCH MCHC RDW Plt Count MPV Immature Gran % (Auto) Neut % (Auto) Lymph % (Auto) [place] % (Auto) Eos % (Auto) Baso % (Auto) Lymph # (Auto) [place] # (Auto) Eos # (Auto) Baso # (Auto) Abs Immat Gran (auto) Absolute Neuts (auto) Absolute Nucleated RBC Nucleated RBC % (auto) Hold Blue Top Sodium Potassium Chloride Carbon Dioxide Anion Gap BUN Creatinine Estim Creat Clear Calc Estimated GFR POC Glucose 118 H Random Glucose Calcium Total Creatine Kinase Troponin I High Sens B-Natriuretic Peptide Urine Color YELLOW Urine Appearance CLEAR Urine pH 5.5 Ur Specific [place] <= 1.005 Urine Protein NEG Urine Glucose (UA) NEG Urine Ketones NEG Urine Blood 1+ H Urine Nitrite POS H Ur Leukocyte Esterase NEG Urine RBC 1-4 Urine WBC 5-9 H Ur Squamous Epith Cells 1+ Urine Bacteria 4+ COVID-19 (MATA) Negative COVID-19 Clin Com See Note 08/31/20 11:24 WBC RBC Hgb Hct MCV MCH MCHC RDW Plt Count MPV Immature Gran % (Auto) Neut % (Auto) Lymph % (Auto) [place] % (Auto) Eos % (Auto) Baso % (Auto) Lymph # (Auto) [place] # (Auto) Eos # (Auto) Baso # (Auto) Abs Immat Gran (auto) Absolute Neuts (auto) Absolute Nucleated RBC Nucleated RBC % (auto) Hold Blue Top Sodium Potassium Chloride Carbon Dioxide Anion Gap BUN Creatinine Estim Creat Clear Calc Estimated GFR POC Glucose 133 H Random Glucose Calcium Total Creatine Kinase Troponin I High Sens B-Natriuretic Peptide Urine Color Urine Appearance Urine pH Ur Specific [place] Urine Protein Urine Glucose (UA) Urine Ketones Urine Blood Urine Nitrite Ur Leukocyte Esterase Urine RBC Urine WBC Ur Squamous Epith Cells Urine Bacteria COVID-19 (MATA) COVID-19 Clin Com Discharge Plan Discharge Patient Disposition: Left Against Medical Advice Discharge Diagnosis: UTI Referrals: Breann Mcgrath DO [Primary Care Provider] - 1 Week Discharge Medications: New cefuroxime axetil 250 mg tablet 250 mg PO BID 5 Days Qty: 10 RF: 0 Continued lubiprostone [Amitiza] 24 mcg capsule 24 mcg PO BID Qty: 180 RF: 2 Saccharomyces boulardii [Probiotic (S.boulardii)] 250 mg capsule 250 mg PO BID 30 Days Qty: 60 RF: 3 docusate sodium 100 mg capsule 100 mg PO DAILY Qty: 30 RF: 0 triamcinolone acetonide 55 mcg aerosol,spray 2 spray intranasal DAILY RF: 0 metoclopramide HCl 10 mg tablet 1 tab PO TID RF: 0 insulin asp prt-insulin aspart [Novolog Mix 70-30FlexPen U-100] 100 unit/mL (70-30) insulin pen See Rx Instructions .ROUTE .COMPLEX RF: 0 metoclopramide HCl [Reglan] 10 mg tablet 10 mg PO .TIDAC 30 Days Qty: 90 RF: 3 calcium polycarbophil [Fiber Therapy (ca polycarboph)] 625 mg tablet 1,250 mg PO BID RF: 0 simethicone [Gas Relief (simethicone)] 125 mg capsule 125 mg PO TID-QID PRN (Reason: Abdominal Discomfort) RF: 0 senna 8.6 mg capsule 17.2 mg PO BEDTIME 30 Days Qty: 60 RF: 3 tramadol 50 mg tablet 50 mg PO BID PRN (Reason: Pain) RF: 0 loratadine [Claritin] 10 mg tablet 10 mg PO DAILY RF: 0 irbesartan 300 mg tablet 300 mg PO DAILY RF: 0 albuterol sulfate 90 mcg/actuation HFA aerosol inhaler 2 puff inhalation Q4-6H PRN (Reason: Shortness Of Breath Or Wheezing) RF: 0 albuterol sulfate 2.5 mg /3 mL (0.083 %) solution for nebulization 2.5 mg inhalation QID RF: 0 acetaminophen [Mapap Arthritis Pain] 650 mg tablet extended release 650 mg PO Q8H RF: 0 Flovent HFA 220 mcg/actuation HFA aerosol inhaler 2 puff inhalation BID RF: 0 omega-3 fatty acids [Fish Oil Concentrate] 1,000 mg capsule 1,000 mg PO BID RF: 0 calcium carbonate-vitamin D3 [Calcium 500 + D] 500 mg(1,250mg) -200 unit tablet 1 tab PO BID RF: 0 aspirin [Adult Low Dose Aspirin] 81 mg tablet,delayed release (DR/EC) 81 mg PO DAILY RF: 0 nitroglycerin [Nitrostat] 0.4 mg tablet, sublingual 0.4 mg sublingual Q5M PRN (Reason: Chest Pain) RF: 0 atorvastatin 40 mg tablet 40 mg PO DAILY RF: 0 zolpidem [Ambien] 10 mg tablet 10 mg PO BEDTIME PRN (Reason: Sleep) RF: 0 gabapentin 600 mg tablet 300 mg PO TID RF: 0 Discharge Orders: Discharge Order (Routine); Ordered 08/31/20 Ordered By: Julia Simeon Care Plan Goals: AMA Health Concerns: AMA Plan of Treatment: UTI - please take entire course of antibiotics. Assessment: AMA Discharge Date/Time: 08/31/20 13:07
--- NOTE | 2020-08-31 12:37 | MHC.CM.PN ---
Patient left AMA before she could be seen by case management.
== END 2020-08-31 13:07 | disposition left against medical advice (07) | DRG 566 ==
LOC: HO.ED 08-31 00:11 → HO.EDOVER 08-31 04:03
PROVIDERS: Admitting Provider Internal Medicine; Emergency Provider Emergency Medicine; PCP Family Medicine; Visit Provider Internal Medicine
DX: T79.6XXA Traumatic ischemia of muscle, initial encounter (principal); W19.XXXA Unspecified fall, initial encounter; Z20.822 Contact with and (suspected) exposure to COVID-19; I25.10 Atherosclerotic heart disease of native coronary artery without angina pectoris; R29.6 Repeated falls; I35.0 Nonrheumatic aortic (valve) stenosis; Z91.81 History of falling; Z79.4 Long term (current) use of insulin; Z79.82 Long term (current) use of aspirin; Z79.891 Long term (current) use of opiate analgesic; Z79.899 Other long term (current) drug therapy
CPT/HCPCS: 36415; 70450; 71045; 72125; 73502; 80048; 81001; 81003; 82550; 82947; 83880; 84484; 85025; 87040; 87635; 93005; 96365; 99284; 99285; J0696

== ENCOUNTER 2020-09-10 19:17 | Inpatient (IN) | payer MEDICARE, SELFPAY ==
--- NOTE | ~2020-09-10 | CT_ITS ---
EXAMINATION: CT HEAD WITHOUT CONTRAST CLINICAL INFORMATION: Acute CVA. COMPARISON: CT head 08/29/2020. TECHNIQUE: Contiguous axial imaging was performed from the skull base to vertex without intravenous administration of contrast. This CT examination was performed using dose optimization techniques as appropriate, variously including the following: *Automated exposure control. *Adjustment of mA and/or kV according to patient size (this includes techniques or standardized protocols for targeted exams where dose is matched to indication/reason for exam; i.e. extremities or head). *Use of iterative reconstruction technique. DLP: 882 mGy-cm FINDINGS: There is no evidence of acute intracranial hemorrhage or edematous territorial infarction. No abnormal mass effect or midline shift is seen. [id number] matter differentiation is well preserved. No extra-axial fluid collections are identified. Bilateral basal ganglia calcification. Stable mild prominence of the ventricles, which may be symmetric. Patchy deep white matter and periventricular hypodensities, probably reflecting chronic microangiopathic changes, appearing similar to previous. No acute calvarial fracture. Redemonstrated lobulated soft tissue density in the right maxillary sinus with central hyperdense calcifications, probably reflecting retention cysts, less likely polyps. The mastoid air cells and remainder of the visualized portions of the paranasal sinuses are well aerated. CT/CT head/brain wo con IMPRESSION: 1. On this noncontrast CT, there is no evidence of acute intracranial hemorrhage or edematous territorial infarction is seen. Further evaluation with CTA head or MRI as clinically warranted. 2. Additional chronic changes as detailed above. This critical result was discussed with Dr. Cristo Canchola MD at 7:47 PM on 09/10/2020 and it was ascertained that the content and urgency of the report was understood at the time of direct communication.
--- NOTE | ~2020-09-10 | XR_ITS ---
EXAMINATION: XR CHEST CLINICAL INFORMATION: Stroke COMPARISON: 08/29/2020 TECHNIQUE: Frontal view of the chest was obtained. FINDINGS: Relative expiratory chest eccentric lung markings at the bases. No significant abnormality is noted involving the heart, lungs, mediastinum, bony thorax or soft tissues. XR/XR chest 1V IMPRESSION: No active chest disease allowing for technique.
[2020-09-10 19:23] VITALS: BP 167/82; PULSE 68; O2SAT 98
[2020-09-10 19:26] LABS: Prothrombin Time Whole Bld POC 10.9 sec (11.1-13.5); ~PT, ~INR - Anti Coag Clinic 0.9 (0.9-1.1)
--- NOTE | 2020-09-10 19:26 | ED.NEUROSD ---
HPI - Neuro Symptoms/Deficit General Chief Complaint: Altered Mental Status Stated Complaint: stroke alert Time Seen by Provider: 09/10/20 19:23 Source: patient, EMS and sign language interpreter Mode of arrival: EMS Limitations: no limitations History of Present Illness HPI Narrative: 84 years old female brought in by ambulance for evaluation for right facial droop that started at 18:00. 84-year-old female with history of asthma, congestive heart failure, coronary artery disease, diabetes, hypertension presented after family noted the patient has a right facial droop that started at 18:00 (1 hour before arrival), on arrival in the emergency department no facial droop was appreciated and patient was complaining of facial pain. Patient is complaining of headache, facial pain, everywhere hurts in her body. Patient overall is a poor historian. History was mostly taken from EMS Related Data Home Medications Medication Instructions Recorded Confirmed acetaminophen 650 mg 650 mg PO Q8H 02/11/20 08/31/20 tablet,extended release albuterol sulfate 2.5 mg INHALATION QID 02/11/20 08/31/20 albuterol sulfate 90 mcg/actuation 2 puff INHALATION Q4-6H PRN 02/11/20 08/31/20 aerosol inhaler aspirin 81 mg tablet,delayed 81 mg PO DAILY 02/11/20 08/31/20 release atorvastatin 40 mg tablet 40 mg PO DAILY 02/11/20 08/31/20 calcium carbonate 500 mg (1,250 1 tab PO BID 02/11/20 08/31/20 mg)-vitamin D3 200 unit tablet fluticasone propionate 220 2 puff INHALATION BID 02/11/20 08/31/20 mcg/actuation HFA aerosol inhaler irbesartan 300 mg tablet 300 mg PO DAILY 02/11/20 08/31/20 loratadine 10 mg tablet 10 mg PO DAILY 02/11/20 08/31/20 nitroglycerin 0.4 mg sublingual 0.4 mg SUBLINGUAL Q5M PRN 02/11/20 08/31/20 tablet omega-3 fatty acids 1,000 mg 1,000 mg PO BID 02/11/20 08/31/20 capsule tramadol 50 mg tablet 50 mg PO BID PRN 02/11/20 08/31/20 zolpidem 10 mg tablet 10 mg PO BEDTIME PRN tab 02/11/20 08/31/20 gabapentin 600 mg tablet 300 mg PO TID tab 03/02/20 08/31/20 calcium polycarbophil 625 mg tablet 1,250 mg PO BID 03/21/20 03/21/20 simethicone 125 mg capsule 125 mg PO TID-QID PRN 03/21/20 08/31/20 insulin asp prt-insulin aspart See Rx Instructions .ROUTE .COMPLEX 08/31/20 [Novolog Mix 70-30FlexPen U-100] metoclopramide HCl 1 tab PO TID 08/31/20 08/31/20 triamcinolone acetonide 2 spray INTRANASAL DAILY 08/31/20 08/31/20 Previous Rx's Medication Instructions Recorded sennosides 8.6 mg capsule 17.2 mg PO BEDTIME 30 Days #60 cap 03/22/20 lubiprostone 24 mcg capsule 24 mcg PO BID #180 cap 05/23/20 metoclopramide HCl 10 mg tablet 10 mg PO .TIDAC 30 Days #90 tab 06/07/20 Saccharomyces boulardii 250 mg 250 mg PO BID 30 Days #60 cap 07/25/20 capsule docusate sodium 100 mg capsule 100 mg PO DAILY #30 cap 08/24/20 Allergies Allergy/AdvReac Type Severity Reaction Status Date / Time almond Allergy Intermediate HIVES Verified 08/30/20 18:07 moxifloxacin [From Avelox] Allergy Mild Rash Verified 08/30/20 18:07 peanut [Peanut] Allergy Mild Rash Verified 08/30/20 18:07 Review of Systems Review of Systems: All other systems are reviewed and are negative Constitutional: Reports as per HPI and Reports no additional constitutional complaints Eyes: Reports as per HPI and Reports no additional eye complaints Reports system reviewed and no additional complaints, except as documented Cardiovascular: Reports as per HPI and Reports no additional cardiovascular complaints Respiratory: Reports as per HPI and Reports no additional respiratory complaints Gastrointestinal: Reports as per HPI and Reports no additional gastrointestinal complaints Genitourinary: Reports no additional female genitourinary complaints Musculoskeletal: Reports no additional musculoskeletal complaints Skin/Breast: Reports system reviewed and no additional complaints, except as docu Psychiatric: Reports no additional psychiatric complaints Endocrine: Reports no additional endocrine complaints Hematologic/Lymphatic: Reports no additional hematologic/lymphatic complaints Allergic/Immunologic: Reports no additional allergic/immunologic complaints Reports system reviewed and no additional complaints, except as documented and Reports Abnormal speech present PMFSH Past Medical History Medical History Asthma Atherosclerotic cardiovascular disease Congestive heart failure Coronary artery disease Diabetes mellitus Diverticulitis Hypertension Irritable bowel syndrome Left bundle branch block Osteoporosis Surgical History History of cholecystectomy History of esophagogastroduodenoscopy (EGD) Hx of colonoscopy S/P appendectomy S/P coronary artery stent placement S/P hernia repair Family History Family History Father CVD (cardiovascular disease) Mother Diabetes CVD (cardiovascular disease) Social History Social History Household Members: Children Housing: House Alcohol intake: current Alcohol intake frequency: does not drink Smoking Status: Unknown if ever smoked Advance Directives: No Advance Directives Information Provided: No Physical Exam Vital Signs: Vital Signs: Last Vital Signs Temp 98.6 F 09/10/20 19:46 Pulse 79 09/10/20 19:46 Resp 42 H 09/10/20 19:46 BP 155/68 H 09/10/20 19:46 Pulse Ox 96 09/10/20 19:46 Body Mass Index 27.4 Vital signs have been reviewed as appeared to be correct. Blood pressure elevated. Heart rate normal. Respiration rate normal. Temperature normal. Oxygen saturation normal. Appearance: Alert. No acute distress. Head: Normal external exam. Normocephalic. Atraumatic. No Rodas signs noted. No raccoon eyes noted Eyes: PERRLA. EOMI. Conjunctiva and sclera normal. Eyelids normal. ENT: TM's Normal. Pharynx normal. Uvula midline. Moist mucous membranes. No trismus noted. No drooling noted. No muffled voice noted. Neck: Normal inspection. Neck supple. FROM. No adenopathy. Thyroid Normal. No meningeal signs. No neck mass noted. CVS: Normal heart rate and rhythm. Heart sound normal. No murmurs noted. Pulses normal throughout. Respiratory: No respiratory distress. Painless inspiration. Breath sounds normal. No wheezes/rales/rhonchi noted. Chest nontender. No accessory muscle usage noted or decreased air movement noted. Abdomen: Soft and nontender. Bowel sounds normal in all 4 quadrants. No distention noted. No organomegaly noted. No visible injury noted. Back: No CVA tenderness. Full range of motion noted. Skin: Skin warm and dry. Normal skin color. Normal skin turgor. No rashes/lesions/lacerations noted. Extremities: No lower extremity edema. Extremities exhibit normal range of motion. Extremities nontender. Neuro: No motor deficit. No sensory deficit. Reflexes normal. No obvious facial droop however because patient is missing multiple teeth evaluating facial exam is difficult. Course Course Course Narrative: Assessment and plan. 84-year-old female came in for evaluation of her right facial droop that resolved on arrival to ED, NIH stroke score is 0, patient found to be hyperglycemic and hyponatremic, patient was re-evaluated by me patient is breathing comfortably with respiratory rate of 18 per minute so I disagree with nursing documentation that RR at 41 breath per minute. Respiratory exam is unremarkable and chest x-ray is unremarkable to. 1.Will admit the patient for TIA for further neurological evaluation. 2. Correct hyperglycemia with IV fluids and insulin. No DKA, normal bicarb, normal anion gap. 3. Hyponatremia secondary to hyperglycemia. MDM - Neuro Symptoms/Deficit Lab Data Attestation: I reviewed the patient's lab results. Result diagrams: 09/10/20 19:51 09/10/20 19:51 Labs: Lab Results 09/10/20 09/10/20 09/10/20 Range/Units 19:21 19:21 19:51 WBC 10.7 (4.8-10.8) X10*3/uL RBC 3.87 L (4.20-5.50) X10*6/uL Hgb 11.6 L (12.0-16.0) g/dl Hct 34.4 L (37-47) % MCV 88.9 (80-98) fL MCH 30.0 (27.0-33.0) pg MCHC 33.7 (31.0-35.0) g/dl RDW 12.6 (11.0-16.0) % Plt Count 241 (160-400) X10*3/uL MPV 10.5 (9.4-12.3) fL Immature Gran % (Auto) 0.3 (0.0-0.4) % Neut % (Auto) 88.5 H (45-73) % Lymph % (Auto) 7.3 L (20-40) % [place] % (Auto) 3.8 (2-11) % Eos % (Auto) 0.0 (0-4) % Baso % (Auto) 0.1 (0-2) % Lymph # (Auto) 0.8 L (1.2-4.9) X10*3/uL [place] # (Auto) 0.4 (0.1-1.2) X10*3/uL Eos # (Auto) 0.0 (0.0-0.4) X10*3/uL Baso # (Auto) 0.0 (0.0-0.2) X10*3/uL Abs Immat Gran (auto) 0.03 (0.00-0.03) X10*3/uL Absolute Neuts (auto) 9.4 H (2.0-8.3) X10*3/uL Absolute Nucleated RBC 0.000 (0.0-0.012) X10*3/uL Nucleated RBC % (auto) 0.0 (0.0-0.2) /100WBC PT (10.8-13.0) SEC Whole Blood PT 10.9 L (11.1-13.5) sec INR (0.9-1.1) Whole Blood INR 0.9 (0.9-1.1) APTT (24.1-38.0) SEC Sodium (135-145) mmol/L Potassium (3.3-5.1) mmol/L Chloride (96-108) mmol/L Carbon Dioxide (22-29) mmol/L Anion Gap (12-20) BUN (9-16) mg/dL Creatinine (0.5-1.4) mg/dL Estim Creat Clear Calc Estimated GFR POC Glucose 461 H* (60-115) mg/dL Random Glucose (60-115) mg/dL Calcium (8.4-10.2) mg/dL Total Creatine Kinase (26-140) U/L Troponin I High Sens (<3.5-17.0) ng/L 09/10/20 09/10/20 09/10/20 Range/Units 19:51 19:51 19:51 WBC (4.8-10.8) X10*3/uL RBC (4.20-5.50) X10*6/uL Hgb (12.0-16.0) g/dl Hct (37-47) % MCV (80-98) fL MCH (27.0-33.0) pg MCHC (31.0-35.0) g/dl RDW (11.0-16.0) % Plt Count (160-400) X10*3/uL MPV (9.4-12.3) fL Immature Gran % (Auto) (0.0-0.4) % Neut % (Auto) (45-73) % Lymph % (Auto) (20-40) % [place] % (Auto) (2-11) % Eos % (Auto) (0-4) % Baso % (Auto) (0-2) % Lymph # (Auto) (1.2-4.9) X10*3/uL [place] # (Auto) (0.1-1.2) X10*3/uL Eos # (Auto) (0.0-0.4) X10*3/uL Baso # (Auto) (0.0-0.2) X10*3/uL Abs Immat Gran (auto) (0.00-0.03) X10*3/uL Absolute Neuts (auto) (2.0-8.3) X10*3/uL Absolute Nucleated RBC (0.0-0.012) X10*3/uL Nucleated RBC % (auto) (0.0-0.2) /100WBC PT 10.9 (10.8-13.0) SEC Whole Blood PT (11.1-13.5) sec INR 0.9 (0.9-1.1) Whole Blood INR (0.9-1.1) APTT 23.4 L (24.1-38.0) SEC Sodium 128 L (135-145) mmol/L Potassium 4.2 D (3.3-5.1) mmol/L Chloride 95 L (96-108) mmol/L Carbon Dioxide 24 (22-29) mmol/L Anion Gap 13 (12-20) BUN 25 H D (9-16) mg/dL Creatinine 1.30 (0.5-1.4) mg/dL Estim Creat Clear Calc 22.4 Estimated GFR 39 POC Glucose (60-115) mg/dL Random Glucose 499 H* (60-115) mg/dL Calcium 9.1 (8.4-10.2) mg/dL Total Creatine Kinase 94 D (26-140) U/L Troponin I High Sens 8.1 D (<3.5-17.0) ng/L Imaging Data Chest x-ray: Radiologist's impression: No acute pathology. CT scan - head: Radiologist's impression: No acute pathology. ECG Data Interpretation: Normal sinus rhythm at 83 beats per minutes, with occasional PVCs, left axis deviation, left bundle branch block. No change from old EKG. NIH Stroke Scale Level of Consciousness: Alert Level of Consciousness Questions: Answers both questions correctly Level of Consciousness Commands: Performs both tasks correctly Best Gaze: Normal Visual: No visual loss Facial Palsy: Normal Motor Arm (Right): No drift Motor Arm (Left): No drift Motor Leg (Right): No drift Motor Leg (Left): No drift Limb Ataxia: Absent Sensory: Normal Best Language: No aphasia Dysarthia: Normal Extinction and Inattention: No abnormality Score: 0 Discharge Plan Discharge Clinical Impression: Acute hyperglycemia, Acute hyponatremia, Brain TIA Patient Disposition: Admitted As Inpatient Prescriptions: No Action lubiprostone [Amitiza] 24 mcg capsule 24 mcg PO BID Qty: 180 RF: 2 Saccharomyces boulardii [Probiotic (S.boulardii)] 250 mg capsule 250 mg PO BID 30 Days Qty: 60 RF: 3 docusate sodium 100 mg capsule 100 mg PO DAILY Qty: 30 RF: 0 triamcinolone acetonide 55 mcg aerosol,spray 2 spray intranasal DAILY RF: 0 metoclopramide HCl 10 mg tablet 1 tab PO TID RF: 0 insulin asp prt-insulin aspart [Novolog Mix 70-30FlexPen U-100] 100 unit/mL (70-30) insulin pen See Rx Instructions .ROUTE .COMPLEX RF: 0 metoclopramide HCl [Reglan] 10 mg tablet 10 mg PO .TIDAC 30 Days Qty: 90 RF: 3 calcium polycarbophil [Fiber Therapy (ca polycarboph)] 625 mg tablet 1,250 mg PO BID RF: 0 simethicone [Gas Relief (simethicone)] 125 mg capsule 125 mg PO TID-QID PRN (Reason: Abdominal Discomfort) RF: 0 senna 8.6 mg capsule 17.2 mg PO BEDTIME 30 Days Qty: 60 RF: 3 tramadol 50 mg tablet 50 mg PO BID PRN (Reason: Pain) RF: 0 loratadine [Claritin] 10 mg tablet 10 mg PO DAILY RF: 0 irbesartan 300 mg tablet 300 mg PO DAILY RF: 0 albuterol sulfate 90 mcg/actuation HFA aerosol inhaler 2 puff inhalation Q4-6H PRN (Reason: Shortness Of Breath Or Wheezing) RF: 0 albuterol sulfate 2.5 mg /3 mL (0.083 %) solution for nebulization 2.5 mg inhalation QID RF: 0 acetaminophen [Mapap Arthritis Pain] 650 mg tablet extended release 650 mg PO Q8H RF: 0 Flovent HFA 220 mcg/actuation HFA aerosol inhaler 2 puff inhalation BID RF: 0 omega-3 fatty acids [Fish Oil Concentrate] 1,000 mg capsule 1,000 mg PO BID RF: 0 calcium carbonate-vitamin D3 [Calcium 500 + D] 500 mg(1,250mg) -200 unit tablet 1 tab PO BID RF: 0 aspirin [Adult Low Dose Aspirin] 81 mg tablet,delayed release (DR/EC) 81 mg PO DAILY RF: 0 nitroglycerin [Nitrostat] 0.4 mg tablet, sublingual 0.4 mg sublingual Q5M PRN (Reason: Chest Pain) RF: 0 atorvastatin 40 mg tablet 40 mg PO DAILY RF: 0 zolpidem [Ambien] 10 mg tablet 10 mg PO BEDTIME PRN (Reason: Sleep) RF: 0 gabapentin 600 mg tablet 300 mg PO TID RF: 0
[2020-09-10 19:28] LABS: Glucose, Whole Blood 461 mg/dL (60-115)
--- NOTE | 2020-09-10 19:38 | ECG_ITS ---
Test Reason : STROKE? Blood Pressure : / mmHG Vent. Rate : 083 BPM Atrial Rate : 083 BPM P-R Int : 130 ms QRS Dur : 122 ms QT Int : 426 ms P-R-T Axes : 067 -44 080 degrees QTc Int : 500 ms Sinus rhythm with occasional Premature ventricular complexes Possible Left atrial enlargement Left axis deviation Left bundle branch block Abnormal ECG When compared with ECG of 30-AUG-2020 22:46, Premature ventricular complexes are now Present Left bundle branch block is now Present Criteria for Anterior infarct are no longer Present Referred By: Cristo Canchola Electronically Signed By:DIEUDONNE DOBSON MD
[2020-09-10 19:40] VITALS: BP 155/68; PULSE 81; RESP 36; TEMP 37; O2SAT 95; BMI 27.4
[2020-09-10 19:46] VITALS: BP 155/68; PULSE 79; RESP 42; TEMP 37; O2SAT 96
[2020-09-10] MEDS: 0.9 % Sodium Chloride 1,000 ML 999 ML IVCONT (19:51)
[2020-09-10] MEDS: Insulin Regular, Human 100 UNIT/ML 3 ML VIAL IVPUSH (19:53)
[2020-09-10 19:56] LABS: MANUAL DIFF FLAG NO; Stroke Lab Use COMPLETE
[2020-09-10 19:58] LABS: Basophils Percent Auto 0.1 % (0-2); Hematocrit 34.4 % (37-47); Hemoglobin 11.6 g/dl (12.0-16.0); Imm Gran Abs Auto 0.03 X10*3/uL (0.00-0.03); Imm Gran Pct Auto 0.3 % (0.0-0.4); Lymphocytes Absolute Auto 0.8 X10*3/uL (1.2-4.9); Lymphocytes Percent Auto 7.3 % (20-40); Mean Corpuscular HGB Conc 33.7 g/dl (31.0-35.0); Mean Corpuscular Volume 88.9 fL (80-98); Mean Platelet Volume 10.5 fL (9.4-12.3); Monocytes Absolute Auto 0.4 X10*3/uL (0.1-1.2); Monocytes Percent Auto 3.8 % (2-11); Neutrophils Absolute Auto 9.4 X10*3/uL (2.0-8.3); Neutrophils Percent Auto 88.5 % (45-73); Platelet Count 241 X10*3/uL (160-400); Red Blood Count 3.87 X10*6/uL (4.20-5.50); Red Cell Distribution Width 12.6 % (11.0-16.0); White Blood Count 10.7 X10*3/uL (4.8-10.8)
[2020-09-10 20:03] LABS: INTERNATIONAL NORM RATIO 0.9 (0.9-1.1); Prothrombin Time 10.9 SEC (10.8-13.0)
[2020-09-10 20:06] LABS: Partial Thromboplastin Time 23.4 SEC (24.1-38.0)
[2020-09-10 20:19] LABS: Anion Gap 13 (12-20); Blood Urea Nitrogen 25 mg/dL (9-16); Calcium 9.1 mg/dL (8.4-10.2); Carbon Dioxide 24 mmol/L (22-29); Chloride 95 mmol/L (96-108); Creatinine Clr Calc Pharmacy 22.4; Estimated Glomerular Filt Rate 39; Potassium 4.2 mmol/L (3.3-5.1); Sodium 128 mmol/L (135-145)
[2020-09-10 20:22] LABS: Troponin-I High Sensitivity 8.1 ng/L (<3.5-17.0)
[2020-09-10 20:25] LABS: Glucose Random 499 mg/dL (60-115)
--- NOTE | 2020-09-10 21:16 | P.HPHOSP_ITS ---
History of Present Illness Date of Service: 09/10/20 Chief Complaint: Right facial droop 84-year-old female with a past medical history of hypertension, hyperlipidemia, coronary artery disease, diabetes, CHF, asthma, history of left bundle branch block, interval bowel syndrome, osteoporosis presented to the hospital with a chief complaint of chest discomfort. Most of the history provided by the patient and patient's daughter. Reportedly patient has chest pain all the time but today she has slightly increased venous with shortness of breath and jaw pain. Patrick was tender on moving. Patient is on reported that she noticed a right facial droop and subsequently wanted to the ER for further evaluation. At the time of entry patient denies any chest pain palpitations lightheadedness or dizziness. But reports mild jaw tenderness. Denies any numbness tingling. Also complains of urinary frequency Review of all other systems is negative except mentioned above Has ER course: Per ER team patient's exam was nonfocal. EKG nonischemic. Troponin negative. Noted hyperglycemia. Admitted to the hospital for further management. [facility] Medical History Asthma Atherosclerotic cardiovascular disease Congestive heart failure Coronary artery disease Diabetes mellitus Diverticulitis Hypertension Irritable bowel syndrome Left bundle branch block Osteoporosis Family History Father CVD (cardiovascular disease) Mother Diabetes CVD (cardiovascular disease) Surgical History History of cholecystectomy History of esophagogastroduodenoscopy (EGD) Hx of colonoscopy S/P appendectomy S/P coronary artery stent placement S/P hernia repair Social History Household Members: Children Household Members Other:: daughter takees care of her Housing: House Do you presently have visiting nurse or other home services: No Alcohol intake: never Smoking Status: Never smoker Use of substances other than those prescribed or required for medical reasons: No Have you been hit, kicked, punched, or otherwise hurt by someone within the past year? If so, by whom?: No Do you feel safe in your current relationship?: Yes Is there a partner from a previous relationship who is making you feel unsafe now?: No Are you made to feel afraid or neglected: No Advance Directives: No Advance Directives Information Provided: No Do you have thoughts of harming others: None Do you have a plan to hurt others: No Plan Recently lost weight without trying: Unsure How much weight loss: Unsure Eating poorly because of decreased appetite: No Nutrition screen score: 4 Nutrition Risks: Difficulty chewing Meds Allergies Allergy/AdvReac Type Severity Reaction Status Date / Time almond Allergy Intermediate HIVES Verified 08/30/20 18:07 moxifloxacin [From Avelox] Allergy Mild Rash Verified 08/30/20 18:07 peanut [Peanut] Allergy Mild Rash Verified 08/30/20 18:07 Active Medications: Current Medications Generic Name Dose Route Start Last Admin Trade Name Freq PRN Reason Stop Dose Admin Acetaminophen 650 mg 09/10/20 21:05 Acetaminophen 325 Mg Tablet PO Q6H PRN Pain, Mild (Pain Scale 1-3) Albuterol Sulfate 2.5 mg 09/11/20 09:00 Albuterol Sulfate (0.083%) 2.5 Mg/3 Ml Vial.Neb INHALE QID [facility] Albuterol Sulfate 2 puff 09/10/20 21:09 Albuterol Sulfate 90 Mcg 8 Gm Inhaler INHALE Q4-6H PRN Shortness Of Breath Or Wheezing Aspirin 81 mg 09/10/20 21:10 Aspirin Enteric Coated 81 Mg Tablet. PO DAILY [facility] Aspirin 81 mg 09/11/20 09:00 Aspirin Enteric Coated 81 Mg Tablet. PO DAILY [facility] Atorvastatin Calcium 40 mg 09/11/20 21:00 Atorvastatin Calcium 40 Mg Tablet PO BEDTIME [facility] Docusate Sodium 100 mg 09/11/20 09:00 Docusate Sodium 100 Mg Capsule PO DAILY [facility] Gabapentin 300 mg 09/11/20 09:00 Gabapentin 300 Mg Capsule PO TID [facility] Insulin Glargine 20 unit 09/11/20 21:00 Insulin Glargine,Hum.Rec.Anlog 100 Unit/Ml 10 Ml Vial SUBCUT BEDTIME [facility] Insulin Human Lispro 0 unit 09/11/20 07:30 Insulin Lispro 100 Unit/Ml 3 Ml Vial SUBCUT QIDACHS [facility] Protocol Loratadine 10 mg 09/11/20 09:00 Loratadine 10 Mg Tablet PO DAILY [facility] Magnesium Hydroxide 30 ml 09/10/20 21:05 Milk Of Magnesia 30 Ml Oral.Susp PO DAILY PRN Constipation Metoclopramide HCl 10 mg 09/11/20 09:00 Metoclopramide Hcl 10 Mg Tablet PO TID [facility] Nitroglycerin 0.4 mg 09/10/20 21:09 Nitroglycerin 0.4 Mg Tab.Subl SUBLINGUAL Q5M PRN Chest Pain Non-Formulary Medication 1 tab 09/11/20 09:00 Calcium Carbonate-Vitamin D3 [Calcium 500 + D] PO BID [facility] Non-Formulary Medication 2 puff 09/11/20 09:00 Fluticasone Propionate [Flovent Hfa] INHALE BID [facility] Non-Formulary Medication 1 tab 09/11/20 09:00 Irbesartan PO DAILY [facility] Non-Formulary Medication 24 mcg 09/11/20 09:00 Lubiprostone PO BID [facility] Non-Formulary Medication 1,000 mg 09/11/20 09:00 [place]-3 Fatty Acids [Fish Oil Concentrate] PO BID [facility] Sodium Chloride 3 ml 09/11/20 00:00 0.9 % Sodium Chloride Flush 3 Ml Syringe IVFLUSH QSHIFT [facility] Tramadol HCl 50 mg 09/10/20 21:09 Tramadol Hcl 50 Mg Tablet PO Q12H PRN pain Zolpidem Tartrate 5 mg 09/10/20 21:09 Zolpidem Tartrate 5 Mg Tablet PO BEDTIME PRN insomnia Home Medications Medication Instructions Recorded Confirmed Last Taken Type albuterol sulfate 2.5 mg INHALATION QID 02/11/20 09/10/20 Unknown History albuterol sulfate 90 mcg/actuation 2 puff INHALATION Q4-6H PRN 02/11/20 09/10/20 Unknown History aerosol inhaler calcium carbonate 500 mg (1,250 1 tab PO BID 02/11/20 09/10/20 Unknown History mg)-vitamin D3 200 unit tablet fluticasone propionate 220 2 puff INHALATION BID 02/11/20 09/10/20 Unknown History mcg/actuation HFA aerosol inhaler nitroglycerin 0.4 mg sublingual 0.4 mg SUBLINGUAL Q5M PRN 02/11/20 09/10/20 Unknown History tablet omega-3 fatty acids 1,000 mg 1,000 mg PO BID 02/11/20 09/10/20 Unknown History capsule simethicone 125 mg capsule 125 mg PO TID-QID PRN 03/21/20 09/10/20 Unknown History acetaminophen 1 tab PO Q6H PRN 09/10/20 09/10/20 Unknown History aspirin 1 tab PO DAILY 09/10/20 09/10/20 Unknown History atorvastatin 1 tab PO BEDTIME 09/10/20 09/10/20 Unknown History docusate sodium 1 cap PO DAILY 09/10/20 09/10/20 Unknown History gabapentin 1 cap PO TID 09/10/20 09/10/20 Unknown History insulin asp prt-insulin aspart SUBCUT 09/10/20 Unknown History [Novolog Mix 70-30FlexPen U-100] irbesartan 1 tab PO DAILY 09/10/20 09/10/20 Unknown History loratadine 1 tab PO DAILY 09/10/20 09/10/20 Unknown History lubiprostone 24 mcg PO BID 09/10/20 09/10/20 Unknown History metoclopramide HCl 1 tab PO TID 09/10/20 09/10/20 Unknown History tramadol 1 tab PO Q12H PRN 09/10/20 09/10/20 Unknown History triamcinolone acetonide 2 spray INTRANASAL DAILY 09/10/20 09/10/20 Unknown History zolpidem 1 tab PO BEDTIME PRN 09/10/20 09/10/20 Unknown History Physical Exam Vital Signs and Narrative: Vital Signs: Last Vital Signs Temp 98.6 F 09/10/20 19:46 Pulse 79 09/10/20 19:46 Resp 42 H 09/10/20 19:46 BP 155/68 H 09/10/20 19:46 Pulse Ox 96 09/10/20 19:46 Body Mass Index 27.4 Gen: Appears be in no acute distress HEENT: NCAT, Moist mucosa. Pulmonary: Vesicular breath sounds, fair air entry CVS: Normal S1-S2 Abdomen: BS+, Soft, Nontender Extremities: Warm well perfused Neuro: Alert and awake. Grossly nonfocal Results Labs CBC and Chem 7: 09/11/20 05:55 09/10/20 19:51 Labs: Laboratory Results - last 24 hr 09/10/20 09/10/20 09/10/20 19:21 19:21 19:51 MCV 88.9 MCH 30.0 MCHC 33.7 RDW 12.6 Plt Count 241 MPV 10.5 Immature Gran % (Auto) 0.3 Neut % (Auto) 88.5 H Lymph % (Auto) 7.3 L [place] % (Auto) 3.8 Eos % (Auto) 0.0 Baso % (Auto) 0.1 Lymph # (Auto) 0.8 L [place] # (Auto) 0.4 Eos # (Auto) 0.0 Baso # (Auto) 0.0 Abs Immat Gran (auto) 0.03 Absolute Neuts (auto) 9.4 H Absolute Nucleated RBC 0.000 Nucleated RBC % (auto) 0.0 PT Whole Blood PT 10.9 L INR Whole Blood INR 0.9 APTT Anion Gap Estim Creat Clear Calc Estimated GFR POC Glucose 461 H* Random Glucose Calcium Total Creatine Kinase Troponin I High Sens 09/10/20 09/10/20 09/10/20 19:51 19:51 19:51 MCV MCH MCHC RDW Plt Count MPV Immature Gran % (Auto) Neut % (Auto) Lymph % (Auto) [place] % (Auto) Eos % (Auto) Baso % (Auto) Lymph # (Auto) [place] # (Auto) Eos # (Auto) Baso # (Auto) Abs Immat Gran (auto) Absolute Neuts (auto) Absolute Nucleated RBC Nucleated RBC % (auto) PT 10.9 Whole Blood PT INR 0.9 Whole Blood INR APTT 23.4 L Anion Gap 13 Estim Creat Clear Calc 22.4 Estimated GFR 39 POC Glucose Random Glucose 499 H* Calcium 9.1 Total Creatine Kinase 94 D Troponin I High Sens 8.1 D Imaging Radiologist's Impressions: Impressions Chest X-Ray 09/10/20 19:58 IMPRESSION: No active chest disease allowing for technique. Assessment and Plan (1) Brain TIA: Status: Acute 84-year-old female with a past medical history of hypertension, hyperlip idemia, diabetes, CAD, CHF, asthma presented to the hospital with a chief complaint of chest pain/jaw pain/right facial droop. By the time she presented to the ER her symptoms improved. Admitted for TIA. TIA: Her symptoms improved. Exam nonfocal. CT head showed no acute findings. Will obtain echocardiogram. Neurology consult. Speech and swallow eval. PT/OT eventually. Chest pain: Atypical in nature. EKG nonischemic. Initial troponin negative. Follow-up troponin pending. Cardiology consult. Urinary frequency: Urinalysis pending. Jaw pain: Slightly tender on palpation. Tylenol p.r.n.. Pseudo hyponatremia: In the setting of elevated blood sugar. Will continue to monitor. Diabetes/hyperglycemia: Will give the patient on Lantus plus insulin sliding scale. Will continue to monitor. No signs of DKA currently. Mild AMOS: Gentle IV fluids. Monitor renal function. Hold nephrotoxins for now. DVT prophylaxis: SCD boots Code status: DNR/DNI-discussed with the patient and patient's family.
[2020-09-10 21:32] LABS: Glucose Urine UA >=1000 MG/DL (NEG); Leukocyte Esterase Urine NEG (NEG); Nitrite Urine NEG (NEG); PH 6.5 (5.0-8.0); Urine Blood TRACE (NEG); Urine Ketones NEG (NEG); Urine Protein NEG (NEG-TRACE)
[2020-09-10 21:33] LABS: Appearance Urine CLEAR; Color Urine YELLOW
[2020-09-10 21:48] LABS: Bacteria Urine TRACE /LPF; RBC Urine 0-2 /HPF (0); Squamous Epithelial Cell Urine TRACE /LPF; WBC Urine 0-2 /HPF (0-4)
[2020-09-10] MEDS: 0.9 % Sodium Chloride 1,000 ML 42 ML IVCONT (22:01)
[2020-09-10 22:22] LABS: Glucose, Whole Blood 247 mg/dL (60-115)
[2020-09-10 22:28] VITALS: BP 178/84; PULSE 75; RESP 18; TEMP 36.9; O2SAT 97
--- NOTE | 2020-09-10 22:59 | PC.NURSE ---
Patient's daughter stated that her mother has been having slurred speech on and off for 2 weeks. The reason she called EMS tonight is because her mother had pain all over and was having chest pain. She was also seen by telehealth visit because she has been having a swollen tongue. Patient was placed on prednisone by primary doctor because there was concern that she was having a prolonged allergic reaction. She started the on 09/07/20 with prednisone taper.
[2020-09-10 23:24] LABS: COVID-19 Test Negative (Negative); IDNOW Serial# 9DD0AD1C
[2020-09-10 23:29] LABS: Troponin-I High Sensitivity 9.6 ng/L (<3.5-17.0)
[2020-09-11] VITALS (8 sets, daily range): BP systolic 148–190; BP diastolic 71–98; PULSE 73–110; RESP 16–20; TEMP 36.9–37.2; O2SAT 96–98
[2020-09-11] MEDS: 0.9 % Sodium Chloride Flush 3 ML SYRINGE IVFLUSH (01:08)
[2020-09-11] MEDS: Morphine Sulfate 2 MG/ML CARTRIDGE 1 MG IVPUSH (02:44)
[2020-09-11] MEDS: HYDROmorphone HCl 0.5 MG/0.5 ML SYRINGE IVPUSH (04:08)
[2020-09-11] MEDS: predniSONE 20 MG TABLET 60 MG PO (04:08)
[2020-09-11 04:59] LABS: Cholesterol 171 mg/dL; HDL Cholesterol 86 mg/dL; LDL Cholesterol Calculated 67 mg/dl; Triglycerides 93 mg/dL
[2020-09-11 05:06] LABS: Troponin-I High Sensitivity 19.3 ng/L (<3.5-17.0)
--- NOTE | 2020-09-11 05:08 | PC.NURSE ---
Pt c/o of headache, mouth, and jaw pain unrelieved by morphine. Aviation Project Manager at bedside. Dr Carlson notified. Troponin and esr ordered. Prednisone and 0.5 mg IV dilaudid ordered and administered. Pt now resting in bed with eyes closed.
[2020-09-11 05:09] LABS: Erythrocyte Sedimentation Rate 12 MM/HR (0-20)
[2020-09-11 06:13] LABS: MANUAL DIFF FLAG NO
[2020-09-11 06:21] LABS: Basophils Absolute Auto 0.1 X10*3/uL (0.0-0.2); Basophils Percent Auto 0.6 % (0-2); Eosinophils Percent Auto 0.3 % (0-4); Hematocrit 39.1 % (37-47); Hemoglobin 13.3 g/dl (12.0-16.0); Imm Gran Abs Auto 0.08 X10*3/uL (0.00-0.03); Imm Gran Pct Auto 0.6 % (0.0-0.4); Lymphocytes Absolute Auto 2.4 X10*3/uL (1.2-4.9); Lymphocytes Percent Auto 16.5 % (20-40); Mean Corpuscular Hemoglobin 29.8 pg (27.0-33.0); Mean Corpuscular Volume 87.7 fL (80-98); Mean Platelet Volume 10.6 fL (9.4-12.3); Monocytes Absolute Auto 1.1 X10*3/uL (0.1-1.2); Monocytes Percent Auto 7.8 % (2-11); Neutrophils Absolute Auto 10.7 X10*3/uL (2.0-8.3); Neutrophils Percent Auto 74.2 % (45-73); Platelet Count 293 X10*3/uL (160-400); Red Blood Count 4.46 X10*6/uL (4.20-5.50); Red Cell Distribution Width 12.2 % (11.0-16.0); White Blood Count 14.4 X10*3/uL (4.8-10.8)
[2020-09-11 06:54] LABS: Anion Gap 13 (12-20); Blood Urea Nitrogen 16 mg/dL (9-16); Calcium 9.8 mg/dL (8.4-10.2); Carbon Dioxide 26 mmol/L (22-29); Chloride 102 mmol/L (96-108); Creatinine Clr Calc Pharmacy 30.6; Estimated Glomerular Filt Rate 56; Glucose Random 225 mg/dL (60-115); Sodium 137 mmol/L (135-145)
[2020-09-11 07:22] LABS: Glucose, Whole Blood 266 mg/dL (60-115)
[2020-09-11] MEDS: Insulin Lispro 100 UNIT/ML 3 ML VIAL SUBCUT ×2 (07:47→11:33)
[2020-09-11] MEDS: Albuterol Sulfate (0.083%) 2.5 MG/3 ML VIAL.NEB INHALE (08:35)
[2020-09-11] MEDS: Calcium + Vitamin D 250 MG TABLET 500 MG PO (09:47)
[2020-09-11] MEDS: Aspirin Enteric Coated 81 MG TABLET.DR PO (09:47)
[2020-09-11] MEDS: Docusate Sodium 100 MG CAPSULE PO (09:47)
[2020-09-11] MEDS: Gabapentin 300 MG CAPSULE PO (09:47)
[2020-09-11] MEDS: Metoclopramide HCl 10 MG TABLET PO (09:47)
[2020-09-11] MEDS: Loratadine 10 MG TABLET PO (09:47)
--- NOTE | 2020-09-11 10:15 | PM.CNCAR ---
History of Present Illness History of Present Illness Date of Service: 09/11/20 Requesting physician: Renetta Cole Chief complaint: TIA/ Hyponatremia, chest pain Narrative: 84-year-old female with past medical history significant for hypertension, hyperlipidemia, coronary disease with previous LAD PCI, left bundle-branch block, irritable bowel syndrome, asthma and osteoporosis. She is presenting from home with shortness of breath and chest pain. Patient has memory trouble and potentially underlying dementia and was unable to give any history. As per the daughter who was present in the room, she complained of chest pain shortness of breath and then noticed right-sided facial droop. These symptoms brought her to the emergency department. Currently there is no facial droop obvious. She is not complaining of any chest pain. She just saying she has arthritis and pain all over. History is very limited. [facility] Past Medical History Medical History Asthma Atherosclerotic cardiovascular disease Congestive heart failure Coronary artery disease Diabetes mellitus Diverticulitis Hypertension Irritable bowel syndrome Left bundle branch block Osteoporosis Family History Family History Father CVD (cardiovascular disease) Mother Diabetes CVD (cardiovascular disease) Surgical History Surgical History History of cholecystectomy History of esophagogastroduodenoscopy (EGD) Hx of colonoscopy S/P appendectomy S/P coronary artery stent placement S/P hernia repair Social History Social History Household Members: Children Household Members Other:: daughter takees care of her Housing: House Do you presently have visiting nurse or other home services: No Alcohol intake: never Smoking Status: Never smoker Use of substances other than those prescribed or required for medical reasons: No Currently Displaying Signs/Symptoms of Drug Intoxication Withdrawal: No Have you been hit, kicked, punched, or otherwise hurt by someone within the past year? If so, by whom?: No Do you feel safe in your current relationship?: Yes Is there a partner from a previous relationship who is making you feel unsafe now?: No Are you made to feel afraid or neglected: No Advance Directives: No Advance Directives Information Provided: No Do you have thoughts of harming others: None Do you have a plan to hurt others: No Plan Recently lost weight without trying: Unsure How much weight loss: Unsure Eating poorly because of decreased appetite: No Nutrition screen score: 4 Nutrition Risks: Difficulty chewing Meds Allergies Allergy/AdvReac Type Severity Reaction Status Date / Time almond Allergy Intermediate HIVES Verified 08/30/20 18:07 moxifloxacin [From Avelox] Allergy Mild Rash Verified 08/30/20 18:07 peanut [Peanut] Allergy Mild Rash Verified 08/30/20 18:07 Active Medications: Current Medications Generic Name Dose Route Start Last Admin Trade Name Freq PRN Reason Stop Dose Admin Acetaminophen 650 mg 09/10/20 21:05 Acetaminophen 325 Mg Tablet PO Q6H PRN Pain, Mild (Pain Scale 1-3) Albuterol Sulfate 2.5 mg 09/11/20 09:00 09/11/20 08:35 Albuterol Sulfate (0.083%) 2.5 Mg/3 Ml Vial.Neb INHALE 2.5 mg RQID NAHOMI Administration Albuterol Sulfate 2 puff 09/10/20 21:09 Albuterol Sulfate 90 Mcg 8 Gm Inhaler INHALE Q4H PRN Shortness Of Breath Or Wheezing Aspirin 81 mg 09/11/20 09:00 09/11/20 09:47 Aspirin Enteric Coated 81 Mg Tablet. PO 81 mg DAILY NAHOMI Administration Atorvastatin Calcium 40 mg 09/11/20 21:00 Atorvastatin Calcium 40 Mg Tablet PO BEDTIME NAHOMI Calcium Carbonate/Cholecalciferol 500 mg 09/11/20 09:00 09/11/20 09:47 Calcium + Vitamin D 250 Mg Tablet PO 500 mg BID NAHOMI Administration Docusate Sodium 100 mg 09/11/20 09:00 09/11/20 09:47 Docusate Sodium 100 Mg Capsule PO 100 mg DAILY NAHOMI Administration Fluticasone Propionate 2 puff 09/11/20 08:00 09/11/20 08:40 Fluticasone Propionate 250 Mcg Blst.W.Dev INHALE Not Given RBID NAHOMI Gabapentin 300 mg 09/11/20 09:00 09/11/20 09:47 Gabapentin 300 Mg Capsule PO 300 mg TID NAHOMI Administration Sodium Chloride 1,000 mls @ 42 mls/hr 09/10/20 21:30 09/10/20 22:01 Ns IVCONT 42 mls/hr .[id number] NAHOMI Administration Insulin Glargine 20 unit 09/11/20 21:00 Insulin Glargine,Hum.Rec.Anlog 100 Unit/Ml 10 Ml Vial SUBCUT BEDTIME [facility] Insulin Human Lispro 0 unit 09/11/20 07:30 09/11/20 07:47 Insulin Lispro 100 Unit/Ml 3 Ml Vial SUBCUT 6 unit QIDACHS [facility] Administration Protocol Labetalol HCl 10 mg 09/11/20 08:28 Labetalol Hcl 100 Mg/20 Ml Vial IVPUSH ONCE PRN SBP >190 Loratadine 10 mg 09/11/20 09:00 09/11/20 09:47 Loratadine 10 Mg Tablet PO 10 mg DAILY [facility] Administration Magnesium Hydroxide 30 ml 09/10/20 21:05 Milk Of Magnesia 30 Ml Oral.Susp PO DAILY PRN Constipation Metoclopramide HCl 10 mg 09/11/20 09:00 09/11/20 09:47 Metoclopramide Hcl 10 Mg Tablet PO 10 mg TID [facility] Administration Morphine Sulfate 1 mg 09/11/20 02:28 09/11/20 02:44 Morphine Sulfate 2 Mg/Ml Cartridge IVPUSH 1 mg Q6H PRN Administration Breakthrough Pain Nitroglycerin 0.4 mg 09/10/20 21:09 Nitroglycerin 0.4 Mg Tab.Subl SUBLINGUAL Q5M PRN Chest Pain Non-Formulary Medication 24 mcg 09/11/20 09:00 Lubiprostone PO BID [facility] Non-Formulary Medication 1,000 mg 09/11/20 09:00 [place]-3 Fatty Acids [Fish Oil Concentrate] PO BID [facility] Sodium Chloride 3 ml 09/11/20 00:00 09/11/20 07:48 0.9 % Sodium Chloride Flush 3 Ml Syringe IVFLUSH Not Given QSHIFT [facility] Tramadol HCl 50 mg 09/10/20 21:09 Tramadol Hcl 50 Mg Tablet PO Q12H PRN pain Valsartan 160 mg 09/11/20 09:00 09/11/20 09:47 Valsartan 80 Mg Tablet PO Not Given DAILY [facility] Zolpidem Tartrate 5 mg 09/10/20 21:09 Zolpidem Tartrate 5 Mg Tablet PO BEDTIME PRN insomnia Home Medications Medication Instructions Recorded Confirmed Last Taken Type albuterol sulfate 2.5 mg INHALATION QID 02/11/20 09/10/20 Unknown History albuterol sulfate 90 mcg/actuation 2 puff INHALATION Q4-6H PRN 02/11/20 09/10/20 Unknown History aerosol inhaler calcium carbonate 500 mg (1,250 1 tab PO BID 02/11/20 09/10/20 Unknown History mg)-vitamin D3 200 unit tablet fluticasone propionate 220 2 puff INHALATION BID 02/11/20 09/10/20 Unknown History mcg/actuation HFA aerosol inhaler nitroglycerin 0.4 mg sublingual 0.4 mg SUBLINGUAL Q5M PRN 02/11/20 09/10/20 Unknown History tablet omega-3 fatty acids 1,000 mg 1,000 mg PO BID 02/11/20 09/10/20 Unknown History capsule simethicone 125 mg capsule 125 mg PO TID-QID PRN 03/21/20 09/10/20 Unknown History acetaminophen 1 tab PO Q6H PRN 09/10/20 09/10/20 Unknown History aspirin 1 tab PO DAILY 09/10/20 09/10/20 Unknown History atorvastatin 1 tab PO BEDTIME 09/10/20 09/10/20 Unknown History docusate sodium 1 cap PO DAILY 09/10/20 09/10/20 Unknown History gabapentin 1 cap PO TID 09/10/20 09/10/20 Unknown History insulin asp prt-insulin aspart SUBCUT 09/10/20 Unknown History [Novolog Mix 70-30FlexPen U-100] irbesartan 1 tab PO DAILY 09/10/20 09/10/20 Unknown History loratadine 1 tab PO DAILY 09/10/20 09/10/20 Unknown History lubiprostone 24 mcg PO BID 09/10/20 09/10/20 Unknown History metoclopramide HCl 1 tab PO TID 09/10/20 09/10/20 Unknown History tramadol 1 tab PO Q12H PRN 09/10/20 09/10/20 Unknown History triamcinolone acetonide 2 spray INTRANASAL DAILY 09/10/20 09/10/20 Unknown History zolpidem 1 tab PO BEDTIME PRN 09/10/20 09/10/20 Unknown History Physical Exam Vital Signs: Vital Signs: Last Vital Signs Temp 99.0 F 09/11/20 07:43 Pulse 109 H 09/11/20 09:57 Resp 20 09/11/20 07:43 BP 148/71 H 09/11/20 09:57 Pulse Ox 96 09/11/20 07:43 Body Mass Index 27.4 GENERAL APPEARANCE: in no acute distress, pleasant. NECK: no carotid bruit, no jugular venous distention. SKIN: no suspicious lesions, warm and dry. HEART: no murmurs, regular rate and rhythm. Tachycardic. LUNGS: clear to auscultation bilaterally. ABDOMEN: soft, nontender. EXTREMITIES: no edema. PERIPHERAL PULSES: equal. NEUROLOGIC: No gross deficits, AAO X 3 Results Labs and Meds Result diagrams: 09/11/20 05:55 09/11/20 05:55 Lab results: Laboratory Results - last 24 hr 09/10/20 09/10/20 09/10/20 19:21 19:21 19:51 WBC 10.7 RBC 3.87 L Hgb 11.6 L Hct 34.4 L MCV 88.9 MCH 30.0 MCHC 33.7 RDW 12.6 Plt Count 241 MPV 10.5 Immature Gran % (Auto) 0.3 Neut % (Auto) 88.5 H Lymph % (Auto) 7.3 L [place] % (Auto) 3.8 Eos % (Auto) 0.0 Baso % (Auto) 0.1 Lymph # (Auto) 0.8 L [place] # (Auto) 0.4 Eos # (Auto) 0.0 Baso # (Auto) 0.0 Abs Immat Gran (auto) 0.03 Absolute Neuts (auto) 9.4 H Absolute Nucleated RBC 0.000 Nucleated RBC % (auto) 0.0 ESR PT Whole Blood PT 10.9 L INR Whole Blood INR 0.9 APTT Sodium Potassium Chloride Carbon Dioxide Anion Gap BUN Creatinine Estim Creat Clear Calc Estimated GFR POC Glucose 461 H* Random Glucose Calcium Total Creatine Kinase Troponin I High Sens Triglycerides Cholesterol LDL Cholesterol, Calc HDL Cholesterol Urine Color Urine Appearance Urine pH Ur Specific [place] Urine Protein Urine Glucose (UA) Urine Ketones Urine Blood Urine Nitrite Ur Leukocyte Esterase Urine RBC Urine WBC Ur Squamous Epith Cells Urine Bacteria COVID-19 (MATA) COVID-19 Clin Com 09/10/20 09/10/20 09/10/20 19:51 19:51 19:51 WBC RBC Hgb Hct MCV MCH MCHC RDW Plt Count MPV Immature Gran % (Auto) Neut % (Auto) Lymph % (Auto) [place] % (Auto) Eos % (Auto) Baso % (Auto) Lymph # (Auto) [place] # (Auto) Eos # (Auto) Baso # (Auto) Abs Immat Gran (auto) Absolute Neuts (auto) Absolute Nucleated RBC Nucleated RBC % (auto) ESR PT 10.9 Whole Blood PT INR 0.9 Whole Blood INR APTT 23.4 L Sodium 128 L Potassium 4.2 D Chloride 95 L Carbon Dioxide 24 Anion Gap 13 BUN 25 H D Creatinine 1.30 Estim Creat Clear Calc 22.4 Estimated GFR 39 POC Glucose Random Glucose 499 H* Calcium 9.1 Total Creatine Kinase 94 D Troponin I High Sens 8.1 D Triglycerides Cholesterol LDL Cholesterol, Calc HDL Cholesterol Urine Color Urine Appearance Urine pH Ur Specific [place] Urine Protein Urine Glucose (UA) Urine Ketones Urine Blood Urine Nitrite Ur Leukocyte Esterase Urine RBC Urine WBC Ur Squamous Epith Cells Urine Bacteria COVID-19 (MATA) COVID-[employer] 09/10/20 09/10/20 09/10/20 21:24 22:17 23:01 WBC RBC Hgb Hct MCV MCH MCHC RDW Plt Count MPV Immature Gran % (Auto) Neut % (Auto) Lymph % (Auto) [place] % (Auto) Eos % (Auto) Baso % (Auto) Lymph # (Auto) [place] # (Auto) Eos # (Auto) Baso # (Auto) Abs Immat Gran (auto) Absolute Neuts (auto) Absolute Nucleated RBC Nucleated RBC % (auto) ESR PT Whole Blood PT INR Whole Blood INR APTT Sodium Potassium Chloride Carbon Dioxide Anion Gap BUN Creatinine Estim Creat Clear Calc Estimated GFR POC Glucose 247 H Random Glucose Calcium Total Creatine Kinase Troponin I High Sens 9.6 Triglycerides Cholesterol LDL Cholesterol, Calc HDL Cholesterol Urine Color YELLOW Urine Appearance CLEAR Urine pH 6.5 Ur Specific [place] 1.010 Urine Protein NEG Urine Glucose (UA) >=1000 H Urine Ketones NEG Urine Blood TRACE Urine Nitrite NEG Ur Leukocyte Esterase NEG Urine RBC 0-2 Urine WBC 0-2 Ur Squamous Epith Cells TRACE Urine Bacteria TRACE COVID-19 (MATA) COVID-[employer] 09/10/20 09/11/20 09/11/20 23:01 04:28 04:28 WBC RBC Hgb Hct MCV MCH MCHC RDW Plt Count MPV Immature Gran % (Auto) Neut % (Auto) Lymph % (Auto) [place] % (Auto) Eos % (Auto) Baso % (Auto) Lymph # (Auto) [place] # (Auto) Eos # (Auto) Baso # (Auto) Abs Immat Gran (auto) Absolute Neuts (auto) Absolute Nucleated RBC Nucleated RBC % (auto) ESR PT Whole Blood PT INR Whole Blood INR APTT Sodium Potassium Chloride Carbon Dioxide Anion Gap BUN Creatinine Estim Creat Clear Calc Estimated GFR POC Glucose Random Glucose Calcium Total Creatine Kinase Troponin I High Sens 19.3 H D Triglycerides 93 Cholesterol 171 LDL Cholesterol, Calc 67 HDL Cholesterol 86 Urine Color Urine Appearance Urine pH Ur Specific [place] Urine Protein Urine Glucose (UA) Urine Ketones Urine Blood Urine Nitrite Ur Leukocyte Esterase Urine RBC Urine WBC Ur Squamous Epith Cells Urine Bacteria COVID-19 (MATA) Negative COVID-19 Clin Com See Note 09/11/20 09/11/20 09/11/20 04:28 05:55 05:55 WBC 14.4 H RBC 4.46 Hgb 13.3 Hct 39.1 MCV 87.7 MCH 29.8 MCHC 34.0 RDW 12.2 Plt Count 293 MPV 10.6 Immature Gran % (Auto) 0.6 H Neut % (Auto) 74.2 H Lymph % (Auto) 16.5 L [place] % (Auto) 7.8 Eos % (Auto) 0.3 Baso % (Auto) 0.6 Lymph # (Auto) 2.4 [place] # (Auto) 1.1 Eos # (Auto) 0.0 Baso # (Auto) 0.1 Abs Immat Gran (auto) 0.08 H Absolute Neuts (auto) 10.7 H Absolute Nucleated RBC 0.000 Nucleated RBC % (auto) 0.0 ESR 12 PT Whole Blood PT INR Whole Blood INR APTT Sodium 137 Potassium 4.0 Chloride 102 Carbon Dioxide 26 Anion Gap 13 BUN 16 Creatinine 0.95 Estim Creat Clear Calc 30.6 Estimated GFR 56 POC Glucose Random Glucose 225 H D Calcium 9.8 D Total Creatine Kinase Troponin I High Sens Triglycerides Cholesterol LDL Cholesterol, Calc HDL Cholesterol Urine Color Urine Appearance Urine pH Ur Specific [place] Urine Protein Urine Glucose (UA) Urine Ketones Urine Blood Urine Nitrite Ur Leukocyte Esterase Urine RBC Urine WBC Ur Squamous Epith Cells Urine Bacteria COVID-19 (MATA) COVID-19 Clin Com 09/11/20 07:08 WBC RBC Hgb Hct MCV MCH MCHC RDW Plt Count MPV Immature Gran % (Auto) Neut % (Auto) Lymph % (Auto) [place] % (Auto) Eos % (Auto) Baso % (Auto) Lymph # (Auto) [place] # (Auto) Eos # (Auto) Baso # (Auto) Abs Immat Gran (auto) Absolute Neuts (auto) Absolute Nucleated RBC Nucleated RBC % (auto) ESR PT Whole Blood PT INR Whole Blood INR APTT Sodium Potassium Chloride Carbon Dioxide Anion Gap BUN Creatinine Estim Creat Clear Calc Estimated GFR POC Glucose 266 H Random Glucose Calcium Total Creatine Kinase Troponin I High Sens Triglycerides Cholesterol LDL Cholesterol, Calc HDL Cholesterol Urine Color Urine Appearance Urine pH Ur Specific [place] Urine Protein Urine Glucose (UA) Urine Ketones Urine Blood Urine Nitrite Ur Leukocyte Esterase Urine RBC Urine WBC Ur Squamous Epith Cells Urine Bacteria COVID-19 (MATA) COVID-19 Clin Com Imaging Radiologist's impression: Impressions Chest X-Ray 09/10/20 19:58 IMPRESSION: No active chest disease allowing for technique. Head CT 09/10/20 22:53 IMPRESSION: 1. On this noncontrast CT, there is no evidence of acute intracranial hemorrhage or edematous territorial infarction is seen. Further evaluation with CTA head or MRI as clinically warranted. 2. Additional chronic changes as detailed above. This critical result was discussed with Dr. Cristo Canchola MD at 7:47 PM on 09/10/2020 and it was ascertained that the content and urgency of the report was understood at the time of direct communication. Assessment and Plan (1) Coronary artery disease: Status: Acute (2) Chest pain: Status: Acute 84-year-old female here for chest pain or shortness of breath. She has been noted to be hyperglycemic and has pseudo hyponatremia. She was given prednisone because of an allergic reaction with tongue swelling. Her tongue swelling has improved. She is unable to give any history. Her troponin levels are 8.1, 9.6 and 19.3. ECG showing left bundle-branch block. She has tachycardia. I think we should repeat the EKG to make sure she does not have any arrhythmia. Her telemetry she is in sinus tachycardia. Currently not endorsing any symptoms. Her biomarkers are not significantly elevated. I explained to the family that with her ongoing memory issues and potential dementia further workup is currently are indicated. Thank you for allowing me to participate in the care of your patient. Please feel free to contact me if you have any questions.
[2020-09-11 11:19] LABS: Glucose, Whole Blood 329 mg/dL (60-115)
--- NOTE | 2020-09-11 11:42 | MHC.CM.PN ---
CM MET WITH PT AND HER DAUGHTER/CAREGIVER. PTS DAUGHTER REPORTS THE PT LIVES WITH HER PART OF THE [facility], [employer] [facility]. SHE ALSO HAS A [facility] NURSE THAT SEES HER Q6 MONTHS. SHE REPORTS THE PT DOES NOT USE ANY DME AT THIS TIME BUT THEY HAVE REQUESTED A WALKER, BED RAIL AND SHOWER CHAIR THAT THEY EXPECT SOON. PTS IMM WAS DELIVERED. PTS DAUGHTER REPORTS THE PT JUST KEEPS REPEATING SHE WANTS TO GO HOME. THEY ARE HOPING TO TAKE PT HOME TODAY BUT ARE AWARE A NEURO CONSULT IS PENDING. PT WILL DC HOME WITH RESUMPTION OF SERVICES FAMILY WILL TRANSPORT
--- NOTE | 2020-09-11 12:09 | PC.NURSE ---
Pt anxious to leave. Stated she did not want to stay in the hospital. Educated on importance of completing course of care. patient verbalized understanding and insisted on leaving AMA. Renetta Cole NP made aware. Patient left AMA at 1145am on 09/11/20
--- NOTE | 2020-09-11 12:10 | PM.DS ---
DS: Providers Provider Date of Service: 09/11/20 Date of admission: 09/10/20 21:06 Date of discharge: 09/11/20 Primary care physician: Breann Mcgrath DO Admitting clinician: Avila Carlson Attending physician on admission: Avila Carlson Consults: 09/10/20 21:08 Consult to Neurology Routine Consulting Provider: Jhony Jarvis Reason for consultation: tia 09/10/20 21:19 Consult to Cardiology Routine Consulting Provider: Demian Stone Reason for consultation: chest pain Attending physician on discharge: mla Discharging clinician: Renetta Cole DS: Diagnosis Discharge Diagnosis (1) Coronary artery disease: Status: Acute (2) Chest pain: Status: Acute DS: Medications Discharge Medications Home Medications: Home Medications Medication Instructions Recorded Confirmed albuterol sulfate 2.5 mg INHALATION QID 02/11/20 09/10/20 albuterol sulfate 90 mcg/actuation 2 puff INHALATION Q4-6H PRN 02/11/20 09/10/20 aerosol inhaler calcium carbonate 500 mg (1,250 1 tab PO BID 02/11/20 09/10/20 mg)-vitamin D3 200 unit tablet fluticasone propionate 220 2 puff INHALATION BID 02/11/20 09/10/20 mcg/actuation HFA aerosol inhaler nitroglycerin 0.4 mg sublingual 0.4 mg SUBLINGUAL Q5M PRN 02/11/20 09/10/20 tablet omega-3 fatty acids 1,000 mg 1,000 mg PO BID 02/11/20 09/10/20 capsule simethicone 125 mg capsule 125 mg PO TID-QID PRN 03/21/20 09/10/20 acetaminophen 1 tab PO Q6H PRN 09/10/20 09/10/20 aspirin 1 tab PO DAILY 09/10/20 09/10/20 atorvastatin 1 tab PO BEDTIME 09/10/20 09/10/20 docusate sodium 1 cap PO DAILY 09/10/20 09/10/20 gabapentin 1 cap PO TID 09/10/20 09/10/20 insulin asp prt-insulin aspart SUBCUT 09/10/20 [Novolog Mix 70-30FlexPen U-100] irbesartan 1 tab PO DAILY 09/10/20 09/10/20 loratadine 1 tab PO DAILY 09/10/20 09/10/20 lubiprostone 24 mcg PO BID 09/10/20 09/10/20 metoclopramide HCl 1 tab PO TID 09/10/20 09/10/20 tramadol 1 tab PO Q12H PRN 09/10/20 09/10/20 triamcinolone acetonide 2 spray INTRANASAL DAILY 09/10/20 09/10/20 zolpidem 1 tab PO BEDTIME PRN 09/10/20 09/10/20 Previous Rx's Medication Instructions Recorded sennosides 8.6 mg capsule 17.2 mg PO BEDTIME 30 Days #60 cap 03/22/20 Saccharomyces boulardii 250 mg 250 mg PO BID 30 Days #60 cap 07/25/20 capsule DS: Summary Hospital Course Hospital Course: HP as per admitting provider 84-year-old female with a past medical history of hypertension, hyperlipidemia, coronary artery disease, diabetes, CHF, asthma, history of left bundle branch block, interval bowel syndrome, osteoporosis presented to the hospital with a chief complaint of chest discomfort. Most of the history provided by the patient and patient's daughter. Reportedly patient has chest pain all the time but today she has slightly increased venous with shortness of breath and jaw pain. Patrick was tender on moving. Patient is on reported that she noticed a right facial droop and subsequently wanted to the ER for further evaluation. At the time of entry patient denies any chest pain palpitations lightheadedness or dizziness. But reports mild jaw tenderness. Denies any numbness tingling. Also complains of urinary frequency Review of all other systems is negative except mentioned above Has ER course: Per ER team patient's exam was nonfocal. EKG nonischemic. Troponin negative. Noted hyperglycemia. Admitted to the hospital for further management . TIA. Admitted with possible TIA. Plan was for patient to see the neurologist however patient stated that she wanted to go home and her daughter agreed and did not want patient to this stay here. They left AMA prior to being seen by the neurologist. She was seen by the hospitalist team this morning and the patient and her daughter were aware that if the left prior to being seen by the Neurology team they would have to leave AMA and if they left AMA without treatment that may have been warranted her symptoms could get worse or the patient can even . Time Spent with Patient Time attestation: Total time spent providing and/or coordinating discharge services: Discharge coordination time: Greater than 30 minutes Quality: Stroke Does the patient have a stroke diagnosis?: No Physical Exam Vital Signs: Vital Signs: Last Vital Signs Temp 98.5 F 09/11/20 11:24 Pulse 110 H 09/11/20 11:24 Resp 20 09/11/20 11:24 BP 165/71 H 09/11/20 11:24 Pulse Ox 97 09/11/20 11:24 Body Mass Index 27.4 Left AMA DS: Data Data Completed and Pending Labs on day of discharge: Laboratory Results - last 24 hr 09/10/20 09/10/20 09/10/20 19:21 19:21 19:51 WBC 10.7 RBC 3.87 L Hgb 11.6 L Hct 34.4 L MCV 88.9 MCH 30.0 MCHC 33.7 RDW 12.6 Plt Count 241 MPV 10.5 Immature Gran % (Auto) 0.3 Neut % (Auto) 88.5 H Lymph % (Auto) 7.3 L [place] % (Auto) 3.8 Eos % (Auto) 0.0 Baso % (Auto) 0.1 Lymph # (Auto) 0.8 L [place] # (Auto) 0.4 Eos # (Auto) 0.0 Baso # (Auto) 0.0 Abs Immat Gran (auto) 0.03 Absolute Neuts (auto) 9.4 H Absolute Nucleated RBC 0.000 Nucleated RBC % (auto) 0.0 ESR PT Whole Blood PT 10.9 L INR Whole Blood INR 0.9 APTT Sodium Potassium Chloride Carbon Dioxide Anion Gap BUN Creatinine Estim Creat Clear Calc Estimated GFR POC Glucose 461 H* Random Glucose Calcium Total Creatine Kinase Troponin I High Sens Triglycerides Cholesterol LDL Cholesterol, Calc HDL Cholesterol Urine Color Urine Appearance Urine pH Ur Specific [place] Urine Protein Urine Glucose (UA) Urine Ketones Urine Blood Urine Nitrite Ur Leukocyte Esterase Urine RBC Urine WBC Ur Squamous Epith Cells Urine Bacteria COVID-19 ([facility]) COVID-19 Clin Com 09/10/20 09/10/20 09/10/20 19:51 19:51 19:51 WBC RBC Hgb Hct MCV MCH MCHC RDW Plt Count MPV Immature Gran % (Auto) Neut % (Auto) Lymph % (Auto) [place] % (Auto) Eos % (Auto) Baso % (Auto) Lymph # (Auto) [place] # (Auto) Eos # (Auto) Baso # (Auto) Abs Immat Gran (auto) Absolute Neuts (auto) Absolute Nucleated RBC Nucleated RBC % (auto) ESR PT 10.9 Whole Blood PT INR 0.9 Whole Blood INR APTT 23.4 L Sodium 128 L Potassium 4.2 D Chloride 95 L Carbon Dioxide 24 Anion Gap 13 BUN 25 H D Creatinine 1.30 Estim Creat Clear Calc 22.4 Estimated GFR 39 POC Glucose Random Glucose 499 H* Calcium 9.1 Total Creatine Kinase 94 D Troponin I High Sens 8.1 D Triglycerides Cholesterol LDL Cholesterol, Calc HDL Cholesterol Urine Color Urine Appearance Urine pH Ur Specific [place] Urine Protein Urine Glucose (UA) Urine Ketones Urine Blood Urine Nitrite Ur Leukocyte Esterase Urine RBC Urine WBC Ur Squamous Epith Cells Urine Bacteria COVID-19 ([facility]ATA) COVIDAlways Prepped 09/10/20 09/10/20 09/10/20 21:24 22:17 23:01 WBC RBC Hgb Hct MCV MCH MCHC RDW Plt Count MPV Immature Gran % (Auto) Neut % (Auto) Lymph % (Auto) [place] % (Auto) Eos % (Auto) Baso % (Auto) Lymph # (Auto) [place] # (Auto) Eos # (Auto) Baso # (Auto) Abs Immat Gran (auto) Absolute Neuts (auto) Absolute Nucleated RBC Nucleated RBC % (auto) ESR PT Whole Blood PT INR Whole Blood INR APTT Sodium Potassium Chloride Carbon Dioxide Anion Gap BUN Creatinine Estim Creat Clear Calc Estimated GFR POC Glucose 247 H Random Glucose Calcium Total Creatine Kinase Troponin I High Sens 9.6 Triglycerides Cholesterol LDL Cholesterol, Calc HDL Cholesterol Urine Color YELLOW Urine Appearance CLEAR Urine pH 6.5 Ur Specific [place] 1.010 Urine Protein NEG Urine Glucose (UA) >=1000 H Urine Ketones NEG Urine Blood TRACE Urine Nitrite NEG Ur Leukocyte Esterase NEG Urine RBC 0-2 Urine WBC 0-2 Ur Squamous Epith Cells TRACE Urine Bacteria TRACE COVID-19 ([facility]) COVID-19 Avitide 09/10/20 09/11/20 09/11/20 23:01 04:28 04:28 WBC RBC Hgb Hct MCV MCH MCHC RDW Plt Count MPV Immature Gran % (Auto) Neut % (Auto) Lymph % (Auto) [place] % (Auto) Eos % (Auto) Baso % (Auto) Lymph # (Auto) [place] # (Auto) Eos # (Auto) Baso # (Auto) Abs Immat Gran (auto) Absolute Neuts (auto) Absolute Nucleated RBC Nucleated RBC % (auto) ESR PT Whole Blood PT INR Whole Blood INR APTT Sodium Potassium Chloride Carbon Dioxide Anion Gap BUN Creatinine Estim Creat Clear Calc Estimated GFR POC Glucose Random Glucose Calcium Total Creatine Kinase Troponin I High Sens 19.3 H D Triglycerides 93 Cholesterol 171 LDL Cholesterol, Calc 67 HDL Cholesterol 86 Urine Color Urine Appearance Urine pH Ur Specific [place] Urine Protein Urine Glucose (UA) Urine Ketones Urine Blood Urine Nitrite Ur Leukocyte Esterase Urine RBC Urine WBC Ur Squamous Epith Cells Urine Bacteria COVID-19 ([facility]ATA) Negative COVID-19 Clin Com See Note 09/11/20 09/11/20 09/11/20 04:28 05:55 05:55 WBC 14.4 H RBC 4.46 Hgb 13.3 Hct 39.1 MCV 87.7 MCH 29.8 MCHC 34.0 RDW 12.2 Plt Count 293 MPV 10.6 Immature Gran % (Auto) 0.6 H Neut % (Auto) 74.2 H Lymph % (Auto) 16.5 L [place] % (Auto) 7.8 Eos % (Auto) 0.3 Baso % (Auto) 0.6 Lymph # (Auto) 2.4 [place] # (Auto) 1.1 Eos # (Auto) 0.0 Baso # (Auto) 0.1 Abs Immat Gran (auto) 0.08 H Absolute Neuts (auto) 10.7 H Absolute Nucleated RBC 0.000 Nucleated RBC % (auto) 0.0 ESR 12 PT Whole Blood PT INR Whole Blood INR APTT Sodium 137 Potassium 4.0 Chloride 102 Carbon Dioxide 26 Anion Gap 13 BUN 16 Creatinine 0.95 Estim Creat Clear Calc 30.6 Estimated GFR 56 POC Glucose Random Glucose 225 H D Calcium 9.8 D Total Creatine Kinase Troponin I High Sens Triglycerides Cholesterol LDL Cholesterol, Calc HDL Cholesterol Urine Color Urine Appearance Urine pH Ur Specific [place] Urine Protein Urine Glucose (UA) Urine Ketones Urine Blood Urine Nitrite Ur Leukocyte Esterase Urine RBC Urine WBC Ur Squamous Epith Cells Urine Bacteria COVID-19 ([facility]) COVID-19 Clin Com 09/11/20 09/11/20 07:08 11:09 WBC RBC Hgb Hct MCV MCH MCHC RDW Plt Count MPV Immature Gran % (Auto) Neut % (Auto) Lymph % (Auto) [place] % (Auto) Eos % (Auto) Baso % (Auto) Lymph # (Auto) [place] # (Auto) Eos # (Auto) Baso # (Auto) Abs Immat Gran (auto) Absolute Neuts (auto) Absolute Nucleated RBC Nucleated RBC % (auto) ESR PT Whole Blood PT INR Whole Blood INR APTT Sodium Potassium Chloride Carbon Dioxide Anion Gap BUN Creatinine Estim Creat Clear Calc Estimated GFR POC Glucose 266 H 329 H Random Glucose Calcium Total Creatine Kinase Troponin I High Sens Triglycerides Cholesterol LDL Cholesterol, Calc HDL Cholesterol Urine Color Urine Appearance Urine pH Ur Specific [place] Urine Protein Urine Glucose (UA) Urine Ketones Urine Blood Urine Nitrite Ur Leukocyte Esterase Urine RBC Urine WBC Ur Squamous Epith Cells Urine Bacteria COVID-19 ([facility]) COVID-19 Clin Com Discharge Plan Discharge Anticipated Discharge Date/Time: 09/11/20 12:14 Patient Disposition: Left Against Medical Advice Discharge Diagnosis: TIA-Left AMA Hypergycemia-Left AMA Referrals: [facility] [Other] - 1 Week [facility] OF CARE NURSE [Other] - 1 Week Breann Mcgrath DO [Primary Care Provider] - 1 Week Discharge Medications: No Action Saccharomyces boulardii [Probiotic (S.boulardii)] 250 mg capsule 250 mg PO BID 30 Days Qty: 60 RF: 3 atorvastatin 40 mg tablet 1 tab PO BEDTIME RF: 0 aspirin 81 mg tablet,delayed release (DR/EC) 1 tab PO DAILY RF: 0 tramadol 50 mg tablet 1 tab PO Q12H PRN (Reason: pain) RF: 0 acetaminophen 500 mg tablet 1 tab PO Q6H PRN (Reason: Pain) RF: 0 triamcinolone acetonide 55 mcg aerosol,spray 2 spray intranasal DAILY RF: 0 docusate sodium 100 mg capsule 1 cap PO DAILY RF: 0 gabapentin 300 mg capsule 1 cap PO TID RF: 0 zolpidem 10 mg tablet 1 tab PO BEDTIME PRN (Reason: insomnia) RF: 0 irbesartan 300 mg tablet 1 tab PO DAILY RF: 0 loratadine 10 mg tablet 1 tab PO DAILY RF: 0 metoclopramide HCl 10 mg tablet 1 tab PO TID RF: 0 insulin asp prt-insulin aspart [Novolog Mix 70-30FlexPen U-100] 100 unit/mL (70-30) insulin pen subcut RF: 0 lubiprostone 24 mcg capsule 24 mcg PO BID RF: 0 simethicone [Gas Relief (simethicone)] 125 mg capsule 125 mg PO TID-QID PRN (Reason: Abdominal Discomfort) RF: 0 senna 8.6 mg capsule 17.2 mg PO BEDTIME 30 Days Qty: 60 RF: 3 albuterol sulfate 90 mcg/actuation HFA aerosol inhaler 2 puff inhalation Q4-6H PRN (Reason: Shortness Of Breath Or Wheezing) RF: 0 albuterol sulfate 2.5 mg /3 mL (0.083 %) solution for nebulization 2.5 mg inhalation QID RF: 0 Flovent HFA 220 mcg/actuation HFA aerosol inhaler 2 puff inhalation BID RF: 0 omega-3 fatty acids [Fish Oil Concentrate] 1,000 mg capsule 1,000 mg PO BID RF: 0 calcium carbonate-vitamin D3 [Calcium 500 + D] 500 mg(1,250mg) -200 unit tablet 1 tab PO BID RF: 0 nitroglycerin [Nitrostat] 0.4 mg tablet, sublingual 0.4 mg sublingual Q5M PRN (Reason: Chest Pain) RF: 0 Discharge Orders: Discharge Order (Routine); Ordered 09/11/20 Ordered By: Renetta Cole Care Plan Goals: Patient left AMA prior to being seen by neurology or completing workup for TIA Health Concerns: TIA Hyperglycemia Plan of Treatment: Return to the ED oif symptoms return or persist Assessment: See discharge summary Discharge Date/Time: 09/11/20 11:45
== END 2020-09-11 11:45 | disposition left against medical advice (07) | DRG 69 ==
LOC: HO.ED 20:40 → HO.EDOVER 21:41 → HO.IMC 23:51
PROVIDERS: Admitting Provider Hospitalist; Emergency Provider Emergency Medicine; PCP Family Medicine; Visit Provider Nurse Practitioner Acute Care
DX: G45.9 Transient cerebral ischemic attack, unspecified (principal); E87.1 Hypo-osmolality and hyponatremia; N17.9 Acute kidney failure, unspecified; I25.10 Atherosclerotic heart disease of native coronary artery without angina pectoris; R29.810 Facial weakness; E78.5 Hyperlipidemia, unspecified; J45.909 Unspecified asthma, uncomplicated; E11.65 Type 2 diabetes mellitus with hyperglycemia; Z20.822 Contact with and (suspected) exposure to COVID-19; Z79.4 Long term (current) use of insulin; Z79.82 Long term (current) use of aspirin; Z79.891 Long term (current) use of opiate analgesic; Z79.899 Other long term (current) drug therapy
CPT/HCPCS: 36415; 70450; 71045; 80048; 80061; 81001; 82550; 82947; 84484; 85025; 85610; 85652; 85730; 87635; 93005; 94640; 96374; 99285; J1170; J2270

== ENCOUNTER 2020-09-23 13:15 | Outpatient (REF) | payer MEDICARE, SELFPAY ==
--- NOTE | ~2020-09-23 | MR_ITS ---
EXAMINATION: UNENHANCED MRI OF THE BRAIN CLINICAL INFORMATION: Fell 3 times within the past 4 days. Aphasia. Assess for mass lesion. COMPARISON: CT head 09/10/2020, 08/30/2020, 08/29/2020, 01/05/2020, MRI brain 06/07/2016, 09/24/2018. TECHNIQUE: Unenhanced MRI of the brain (Mr. Castellanos declined intravenous contrast). FINDINGS: Diffusion-weighted images demonstrate no evidence of acute infarcts. Moderate-marked diffuse commensurate prominence of ventricles and sulci is noted and is slightly increased in prominence compared to 01/16/2017. Moderate subcortical and periventricular white matter punctate T2 hyperintensities are visualized. Focal cystic encephalomalacia over a 9 mm diameter region is unchanged within the left inferior parietal lobule adjacent to the atrium of the posterior body of the left lateral ventricle (series 6 image 14). The craniocervical junction cerebellar tonsils are normal in configuration. No suspicious marrow abnormalities are visualized. Grossly normal flow-related signal intensity is noted in the major intracranial vessels and dural sinuses. Mild mucosal thickening and retained secretions are visualized within the maxillary sinuses. Bilateral ocular lens extractions are noted. No mastoid effusions are identified. Partial visualization is made of the previously noted lesion within the fundus of the left internal auditory canal grossly unchanged compared with MRI of the brain from 06/07/2016 at which time the lesion measured 7 mm in maximum transverse dimension. MR/MR head/brain wo con IMPRESSION: 1. No acute intracranial abnormalities identified. No acute infarcts or intracranial hemorrhage. 2. Moderate white matter chronic small vessel ischemic disease. 3. Moderate diffuse parenchymal volume loss of the brain with findings slightly increased in prominence compared with 06/07/2016. 4. 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 As clinically indicated, this finding may be further evaluated with dedicated internal auditory canal protocol unenhanced and IV contrast enhanced MRI of the brain.
== END 2020-09-23 13:16 | disposition home or self-care (01) ==
LOC: HO.MRI 13:15
PROVIDERS: Visit Provider Emergency Medicine
DX: G89.29 Other chronic pain (principal); R29.6 Repeated falls
CPT/HCPCS: 70551